=== PATIENT | female | born 2000 | race Caucasian/White ===

== ENCOUNTER 2022-11-04 12:37 | Outpatient (CLI) | payer BC, SELFPAY ==
--- NOTE | 2022-11-04 13:00 | CRLHL7_ITS ---
For Patients: As a result of the Cures Act, medical imaging exams and procedure reports are released immediately into your electronic medical record. You may view this report before your referring provider. If you have questions, please contact your health care provider. INDICATION: Early bleeding. Dating and viability check. TECHNIQUE: Ultrasound OB pelvis transabdominal and transvaginal. Real-time espinoza-scale imaging of the pelvis was performed. COMPARISON: None. FINDINGS: Tiny 5 x 4 x 2 mm endometrial sac is present. Embryo present: No. Embryo cardiac activity: NA. [place] rump Length: NA. Sonographic gestational age: NA. Sonographic estimated due date: NA. Yolk sac: Not visualized. Perigestational hemorrhage: None. Ovaries and adnexae: Unremarkable. No suspicious lesions or fluid collections. IMPRESSION: A tiny endometrial sac likely represents an early gestational sac corresponding to a less than 6 weeks gestational age. It is too early to determine viability. No sign of hemorrhage or other abnormality. Dictated by Deven Love MD @ 11/04/2022 2:45:22 PM (Electronically Signed)
== END 2022-11-04 12:38 | disposition home or self-care (01) ==
LOC: US 12:40
PROVIDERS: Visit Provider Physician Assistant
DX: O20.9 Hemorrhage in early pregnancy, unspecified (principal); Z3A.01 Less than 8 weeks gestation of pregnancy
CPT/HCPCS: 76801; 76817; 84702; 86850; 86900; 86901

== ENCOUNTER 2023-07-26 16:51 | Outpatient (CLI) | payer BC, SELFPAY ==
--- NOTE | 2023-07-26 17:00 | CRLHL7_ITS ---
For Patients: As a result of the Cures Act, medical imaging exams and procedure reports are released immediately into your electronic medical record. You may view this report before your referring provider. If you have questions, please contact your health care provider. INDICATION: First trimester scan, establish dates. COMPARISON: None. TECHNIQUE: Real-time espinoza-scale imaging of the pelvis was performed. FINDINGS: Sonographic imaging demonstrates a single living intrauterine gestation. The embryo demonstrates a regular cardiac rate measuring 176 beats per minute. The embryo`s crown-rump length measurement of 2.4 cm corresponds to a gestational age of 9 weeks 1 day with a sonographic due date of 02/27/2024. There is a normal-appearing yolk sac. There are no gross abnormalities noted within the embryo at this early state of development. The gestational sac has a normal appearance. There is no evidence of a perigestational hemorrhage. The amount of fluid within the sac appears appropriate for gestational age. The cervix is closed. The myometrium appears normal. Normal right ovary. Left ovary not visualized. There are no suspicious fluid collections noted in the cul-de-sac. IMPRESSION: Single living intrauterine with sonographic gestational age 9 weeks 1 day and sonographic due date 02/27/2024. Dictated by Lokesh Washington MD @ 07/27/2023 11:44:38 AM (Electronically Signed)
== END 2023-07-26 16:52 | disposition home or self-care (01) ==
LOC: US 16:52
PROVIDERS: Visit Provider Physician Assistant
DX: Z34.91 Encounter for supervision of normal pregnancy, unspecified, first trimester (principal); Z3A.09 9 weeks gestation of pregnancy
CPT/HCPCS: 76817; 82565; 82570; 84156; 84450; 84460; 84520; 86703; 86706; 86803; 86850; 86900; 86901; 87086; 87340; 87491; 87591

== ENCOUNTER 2023-07-26 18:31 | Outpatient (CLI) | payer BC, SELFPAY ==
[2023-07-26 23:38] LABS: Chlamydia DNA Amplified* NOT DETECTED (No Detected); GC DNA Amplified* NOT DETECTED (No Detected)
[2023-07-31 17:29] LABS: Total Protein Urine 8 mg/dL
[2023-07-31 17:30] LABS: Creatinine Urine 108.3 mg/dL
[2023-08-02 07:51] LABS: Collection Time Urine 24 Hours; Total Volume 24 Hour Urine 1400 ml; Urine Creatinine mg/24 Hour 0 mg/Day
== END 2023-07-26 18:32 | disposition home or self-care (01) ==
PROVIDERS: Visit Provider Physician Assistant
DX: Z34.91 Encounter for supervision of normal pregnancy, unspecified, first trimester (principal)
CPT/HCPCS: 82565; 82570; 84156; 84450; 84460; 84520; 86592; 86703; 86704; 86706; 86762; 86787; 86803; 86850; 86900; 86901; 87086; 87340; 87491; 87591

== ENCOUNTER 2023-08-22 15:33 | Outpatient (CLI) | payer BC, SELFPAY | END 2023-08-22 15:34 | disposition home or self-care (01) | PROVIDERS: Visit Provider Obstetrics & Gynecology | DX: R78.89 Finding of other specified substances, not normally found in blood (principal) | CPT/HCPCS: 84450; 84460 ==

== ENCOUNTER 2023-11-28 12:52 | Outpatient (CLI) | payer BC, SELFPAY ==
--- NOTE | 2023-11-28 13:00 | US_ITS ---
Patient: NELLIE GIANG Facility:?[facility] Patient ID:?[id number] Site Patient ID:?[id number]. Site :?[id number] Study:?US-OB Pelvis OB F/U GROWTH-11/28/2023 1:24:03 PM Ordering Physician:?SHRUTI LEI M.D. Final Report: INDICATION: Third trimester scan, evaluate growth. Hypertension. COMPARISON: 07/26/2023 TECHNIQUE: Real time espinoza scale imaging of the fetus was performed. FINDINGS: Sonographic imaging demonstrates a single living intrauterine gestation. Fetus demonstrates a regular cardiac rate of 141 beats per minute. Fetus has a vertex position. The placenta lies posteriorly. Amniotic fluid volume appears normal and there is a single deepest vertical pocket: 4.4 cm. The estimated weight is 1191gm which lies at the 80th %. BPD 75th percentile. HC is 60th percentile. AC is 75th percentile. FL 66th percentile. The HC/AC ratio measures 1.09 range (1.01-1.21). IMPRESSION: Sonographic gestational age is 28 weeks 2 days and a sonographic due date of 02/18/2024. Sonographic age is 8 days ahead of the clinical age. Estimated weight 80th percentile. Abdominal circumference 75th percentile. Dictated by Lokesh Washington MD @ 11/28/2023 3:55:55 PM Signed by:?Lokesh Washington MD @11/28/2023 3:55:55 PM (Electronic Signature)
== END 2023-11-28 12:53 | disposition home or self-care (01) ==
PROVIDERS: Visit Provider Obstetrics & Gynecology
DX: O10.913 Unspecified pre-existing hypertension complicating pregnancy, third trimester (principal); Z3A.28 28 weeks gestation of pregnancy
CPT/HCPCS: 76816; 86592

== ENCOUNTER 2024-01-02 11:52 | Outpatient (CLI) | payer BC, SELFPAY ==
--- NOTE | 2024-01-02 12:15 | US_ITS ---
Patient: NELLIE GIANG Facility:?[facility] Patient ID:?[id number] Site Patient ID:?[id number]. Site :?2000 Study:?US-OB Pelvis growth/BPP-01/02/2024 12:31:23 PM Ordering Physician:?SHRUTI LEI Final Report: INDICATION: Third trimester scan, evaluate growth. Hypertension. COMPARISON: 11/28/2023 TECHNIQUE: Real time espinoza scale imaging of the fetus was performed as well as color Doppler and spectral Doppler analysis of the umbilical artery. FINDINGS: Sonographic imaging demonstrates a single living intrauterine gestation. Fetus demonstrates a regular cardiac rate of 147 beats per minute. Fetus has a vertex position. The placenta lies posterior. Amniotic fluid volume appears normal and there is a single deepest vertical pocket: 4.2 cm. The estimated weight is 2006gm which lies at the 54th %. On the prior OB ultrasound exam dated 11/28/2023 the estimated weight was at the 80th%. BPD 21st percentile. Abdominal circumference 72nd percentile. HC 5th percentile. FL 56th percentile. The HC/AC ratio measures 0.99 range (0.96-1.14). Normal gross body movements, tone and respiratory activity. IMPRESSION: Sonographic gestational age 32 weeks 1 day and sonographic due date of 02/26/2024. Good correlation with dates. Normal interval growth. Estimated weight is 54th percentile. Abdominal circumference 72nd percentile. Biophysical profile 03/22. Dictated by Lokesh Washington MD @ 01/02/2024 12:39:50 PM Signed by:?Lokesh Washington MD @01/02/2024 12:39:50 PM (Electronic Signature)
== END 2024-01-02 11:53 | disposition home or self-care (01) ==
LOC: US 11:53
PROVIDERS: Visit Provider Obstetrics & Gynecology
DX: O10.913 Unspecified pre-existing hypertension complicating pregnancy, third trimester (principal); Z3A.32 32 weeks gestation of pregnancy
CPT/HCPCS: 76816; 76819

== ENCOUNTER 2024-01-10 12:43 | Outpatient (CLI) | payer BC, SELFPAY ==
--- NOTE | 2024-01-10 13:00 | CRLHL7_ITS ---
For Patients: As a result of the Century Cures Act, medical imaging exams and procedure reports are released immediately into your electronic medical record. You may view this report before your referring provider. If you have questions, please contact your health care provider. INDICATION: Unspecified pre-existing hypertension. COMPARISON: OB ultrasound 01/02/2024. TECHNIQUE: Ultrasound OB pelvis biophysical profile. Real time espinoza scale imaging of the fetus was performed without non-stress testing. FINDINGS: Sonographic imaging demonstrates a single living intrauterine gestation. The fetus demonstrates a regular cardiac rate of 167 beats per minute. The fetus has a cephalic orientation. Single deepest pocket measures 4.0 cm (2/2). The fetus was active (2/2). There was normal flexion and extension of the trunk and extremities (2/2). The fetus demonstrated normal breathing movements (2/2). IMPRESSION: Normal biophysical profile score 8 out of 8. Dictated by Lulu Ferris MD @ 01/11/2024 2:56:33 AM (Electronically Signed)
== END 2024-01-10 12:44 | disposition home or self-care (01) ==
PROVIDERS: Visit Provider Obstetrics & Gynecology
DX: O10.919 Unspecified pre-existing hypertension complicating pregnancy, unspecified trimester (principal)
CPT/HCPCS: 76819

== ENCOUNTER 2024-01-15 17:45 | Emergency (ER) | payer BC, SELFPAY ==
[2024-01-15 17:57] VITALS: BP 125/77; PULSE 123; RESP 20; TEMP 37.8; O2SAT 97; BMI 50.8
--- NOTE | 2024-01-15 18:25 | ED_ITS ---
HPI - General Adult General Chief complaint: Extremity Pain/Injury, Lower Stated complaint: R leg pain, 34 weeks Time Seen by Provider: 01/15/24 17:47 History of Present Illness HPI narrative: This 24-year-old female comes in because of some erythema, warmth, and pain in an area on the anterior aspect of her right lower extremity about a [address] from the ankle to the knee. She does not report any fever. She is 34 weeks . She does not have any report of injury event. Related Data Home Medications ?Medication ?Instructions ?Recorded ?Confirmed aspirin 81 mg capsule 81 mg PO QDAY 09/19/23 01/10/24 vits no.126-ferrous fum tab PO QDAY 10/03/23 01/10/24 28 mg iron-folic acid 800 mcg tablet (Classic ) Previous Rx's ?Medication ?Instructions ?Recorded ferrous sulfate 325 mg (65 mg 650 mg (2 x 325 mg (65 mg iron)) 01/02/24 iron) tablet PO Q OTHER DAY #30 tabs labetalol 200 mg tablet 200 mg PO QDAY #60 tabs 01/02/24 Allergies Allergy/AdvReac Type Severity Reaction Status Date / Time acetaminophen [From Vicodin] AdvReac Intermediate Headache Verified 01/10/24 13:17 hydrocodone [From Vicodin] AdvReac Intermediate Headache Verified 01/10/24 13:17 Review of Systems Status of ROS: Reports: 10 or more systems reviewed and unremarkable except as noted in History and below Narrative: Constitutional: No fevers, no weight gain or loss. Eyes: No discharge. No vision changes. HENT: No congestion, no sore throat, no ear pain. Cardiovascular: No chest pain, no palpitations. Respiratory: No shortness of breath, no wheezes, no cough. Gastrointestinal: No abdominal pain, no vomiting, no diarrhea. Genitourinary: No dysuria, no hematuria. Musculoskeletal: Normal range of motion. Skin: No rashes, no pruritis. Neurological: No dizziness, weakness, sensory change, speech change. Endo/Heme/Allergies: No bruising or bleeding. No polydipsia. Pysch: no suicidality, no anxiety, no insomnia. All other systems reviewed and are negative. [facility] Medical History (Updated 01/15/24 @ 18:33 by Mark Williamson MD) Miscarriage ?O03.9 - Complete or unspecified spontaneous without complication (ICD-10) Surgical History (Updated 11/28/23 @ 15:26 by Violetta Gallagher MD) History of tonsillectomy and adenoidectomy ?Z90.89 - Acquired absence of other organs (ICD-10) History of appendectomy ?Z90.49 - Acquired absence of other specified parts of digestive tract (ICD- 10) History of ?Z98.891 - History of uterine scar from previous surgery (ICD-10) Social History (Updated 07/28/23 @ 09:30 by Frida Mora PA-C) Narrative: SOCIAL HISTORY: 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 Marital status: Significant. Episcopal/cultural needs: no. Chemical or radiation exposure: no. Pre- tobacco use: no. Pre- alcohol use: no. Current tobacco use: no. Current alcohol use: no. Recreational drug use: History of marijuana use, stopped with positive UPT. Dietary restrictions: no. Blood transfusion acceptable in an ilana rgency: yes. PSYCHOSOCIAL HISTORY: History of depression or currently depressed: yes. 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 Problems that will make it hard to make it to appointments: no. What is your current living situation?: I presently have a place to live Problems where you live: no known problems In the past 12 months, utilities in danger of being shut off: no In past 12 months, lack of transportation kept you from medical appts, meetings, work, or getting things needed for daily living: no In the past 12 mos, have been you worried that your food would run out before you had money to buy more?: never true In the past 12 mos, the food you bought just didn't last and you didn't have money to buy more?: never true Smoking Status: Never smoker How often does anyone, including family, friends and others, physically hurt you : never How often does anyone, including family, friends and others, insult or talk down to you: never How often does anyone, including family, friends and others, threaten you with h arm: never How often does anyone, including family, friends and others, scream or curse at you: sometimes Little interest or pleasure in doing things: not at all Feeling down, depressed, or hopeless: several days Exam Narrative: Exam Narrative: Constitutional: Well-developed, well-nourished, no acute distress. HEENT: Normocephalic, atraumatic. Neck: Normal range of motion. Nontender. Supple. Heart: Intact distal pulses. Lungs: No chest discomfort. No wheezes, rhonchi, or rales. Abdomen: Nontender. Gravid Back: Normal range of motion. Extremities: Normal range of motion. Erythema with warmth and mild swelling on the anterior aspect of her right lower extremity occupying an area about 6 x 10 cm. Skin: Intact. No rash. Warm. No erythema or pallor. Neurologic: No altered sensation. No weakness. Alert and oriented. Psychiatric: No suicidality. No anxiety or depression. No insomnia. Nursing notes and vitals signs are reviewed. Const: Vital Signs, click to edit/add: Vital Signs - 24 hr 01/15/24 17:57 Temperature 100.1 F H Pulse Rate [Pulse Oximeter] 123 H Respiratory Rate 20 Blood Pressure [Ri ght Upper Arm] 125/77 Pulse Oximetry 97 Course Vital Signs Vital signs: Initial Vital Signs Temperature 100.1 F H 01/15/24 17:57 Temperature Source Temporal Artery Scan 01/15/24 17:57 Pulse Rate 123 H 01/15/24 17:57 Respiratory Rate 20 01/15/24 17:57 Blood Pressure 125/77 01/15/24 17:57 Blood Pressure Mean 93 01/15/24 17:57 Pulse Oximetry 97 01/15/24 17:57 Vital Signs Temperature 100.1 F H 01/15/24 17:57 Pulse Rate 123 H 01/15/24 17:57 Respiratory Rate 20 01/15/24 17:57 Blood Pressure 125/77 01/15/24 17:57 Pulse Oximetry 97 01/15/24 17:57 Temperature 100.1 F H 01/15/24 17:57 Pulse Rate 123 H 01/15/24 17:57 Respiratory Rate 20 01/15/24 17:57 Blood Pressure 125/77 01/15/24 17:57 Pulse Oximetry 97 01/15/24 17:57 Medical Decision Making MDM Narrative Medical decision making narrative: This patient comes in with symptoms on her right lower extremity typical of a cellulitis. She is 34 weeks and arrives with normal vital signs. She does not have any pain in the calf or up into her thigh. She does not have any shortness of breath. She does have a temperature of 100.1? but does not feel feverish. Her pulse was increased on arrival but at recheck her pulse was a bit lower than 100 beats per minute. Discharge Plan Discharge Clinical Impression: Cellulitis Patient Disposition: Home, Self-Care Condition: Stable Additional Instructions: Take medication as prescribed. Continue current plans otherwise. Follow up with MD return if worsening. Prescriptions: No Action aspirin 81 mg capsule 81 mg PO QDAY Classic 28 mg iron- 800 mcg tablet PO QDAY labetalol 200 mg tablet 200 mg PO QDAY Qty: 60 0RF ferrous sulfate 325 mg (65 mg iron) tablet 650 mg PO Q OTHER DAY Qty: 30 1RF Follow Up/Referrals: Provider,Not a Local [Primary Care Provider] - Stand Alone Forms: [employer] Info Instructions
== END 2024-01-15 19:08 | disposition home or self-care (01) ==
PROVIDERS: Emergency Provider Emergency Medicine Emergency Medical Services
DX: L03.115 Cellulitis of right lower limb (principal)
CPT/HCPCS: 99283; 99284

== ENCOUNTER 2024-01-16 12:55 | Outpatient (CLI) | payer BC, SELFPAY ==
--- NOTE | 2024-01-16 13:00 | CRLHL7_ITS ---
For Patients: As a result of the Century Cures Act, medical imaging exams and procedure reports are released immediately into your electronic medical record. You may view this report before your referring provider. If you have questions, please contact your health care provider. INDICATION: Pre-existing hypertension TECHNIQUE: Limited transabdominal two-dimensional espinoza-scale ultrasound examination. COMPARISON: 01/10/2024 FINDINGS: There is a living fetus in cephalic lie with gestational age of 34 weeks 1 day and EDC of 02/26/2024. The biophysical profile score is 8/8 with component scores of 2 for breathing movements, 2 for gross body movements, 2 for tone and 2 for amniotic fluid/SDP. The heart rate is measured at 139 beats per minute and the rhythm appears regular. The amniotic fluid volume is within normal limits with single deepest pocket of 2.3 cm. IMPRESSION: 1. Living fetus in cephalic lie with gestational age of 34 weeks 1 day and EDC of 02/26/2024. 2. Biophysical profile score is 8/8. Dictated by Denilson Darnell MD @ 01/17/2024 7:34:26 PM (Electronically Signed)
== END 2024-01-16 12:56 | disposition home or self-care (01) ==
LOC: US 12:56
PROVIDERS: Visit Provider Obstetrics & Gynecology
DX: O10.913 Unspecified pre-existing hypertension complicating pregnancy, third trimester (principal); Z3A.34 34 weeks gestation of pregnancy
CPT/HCPCS: 76819; 86787

== ENCOUNTER 2024-01-18 18:24 | Emergency (ER) | payer BC, SELFPAY ==
[2024-01-18 18:42] VITALS: BP 131/87; PULSE 99; RESP 18; TEMP 36.6; O2SAT 99; BMI 53.1
--- NOTE | 2024-01-18 19:03 | ED.GENADULT ---
HPI - General Adult General Date Seen: 01/18/24 Chief complaint: Skin/Abscess/Foreign Body Stated complaint: R leg possible cellulitis Time Seen by Provider: 01/18/24 18:58 History of Present Illness HPI narrative: This is a 24-year-old female who is currently 34 weeks presenting to the ER today with redness and pain involving her right leg. Other past medical history includes elevated blood pressure affecting , elevated BMI, depression, ADHD. She is currently 34 weeks . She developed a painful and itchy rash on her right anterior singh 3 days ago on Tuesday. Prior to that she was normal. She recalls that she did go fishing with her on Tuesday (2 days prior to onset of the symptoms) and did have to rusty to through some weeds. Her has not had any rashes, however they wonder if she might have been exposed to poison thelma. She was in the ER on 01/14 and was seen by Dr. Williamson for redness, warmth, and pain affecting an area on the anterior aspect of her right lower leg about [address] from the ankle to the knee. Records indicated was 6 x 10 cm in size. Heart rate was 123. Temperature is 100.1?. Diagnosed with cellulitis. Prescribed cephalexin 500 mg t.i.d. After that she had spreading of the rash in developed some blisters. Fever resolved. She has had some mild achiness in her body. She had a follow-up visit on 01/15 with OB, Dr. Modi. They noted new onset of blisters in the rash. Ob suspected possible poison thelma but also Treated empirically with acyclovir 1000mg TID x 7 days. HSV PCR was obtained in clinic and result is still pending as of this time. The patient recalls that her OB also speculated that the rash might actually be poison thelma. She has been taking the valacyclovir as well as the cephalexin but now notices increasing redness of the rash. Previously had been 2 discrete red lesions and now they are beginning to cold LEs. They are still some small blisters on the rash. It is more painful and more burning and more itchy today. The reddened area it has been spreading out. The 2 previously separate red rashes are now nearly confluent but there still is a small diagonal stripe unaffected skin between them. No other rashes. No fever or chills today. Related Data Home Medications ?Medication ?Instructions ?Recorded ?Confirmed aspirin 81 mg capsule 81 mg PO QDAY 09/19/23 01/16/24 vits no.126-ferrous fum tab PO QDAY 10/03/23 01/16/24 28 mg iron-folic acid 800 mcg tablet (Classic ) cephalexin 500 mg capsule 500 mg PO TID 01/16/24 01/16/24 Previous Rx's ?Medication ?Instructions ?Recorded ferrous sulfate 325 mg (65 mg 650 mg (2 x 325 mg (65 mg iron)) 01/02/24 iron) tablet PO Q OTHER DAY #30 tabs labetalol 200 mg tablet 200 mg PO QDAY #60 tabs 01/02/24 valacyclovir 1 gram tablet 1,000 mg PO Q8H 7 days #21 tabs 01/16/24 clindamycin HCl 300 mg capsule 300 mg PO TID #21 caps 01/18/24 prednisone 10 mg tablet See Rx Instructions .Route 01/18/24 .COMPLEX #58 tabs Allergies Allergy/AdvReac Type Severity Reaction Status Date / Time acetaminophen [From Vicodin] AdvReac Intermediate Headache Verified 01/16/24 13:42 hydrocodone [From Vicodin] AdvReac Intermediate Headache Verified 01/16/24 13:42 PFSH PFSH Medical History (Updated 01/18/24 @ 21:44 by Jj Che MD) Miscarriage ?O03.9 - Complete or unspecified spontaneous without complication (ICD-10) Surgical History (Updated 11/28/23 @ 15:26 by Violetta Gallagher MD) History of tonsillectomy and adenoidectomy ?Z90.89 - Acquired absence of other organs (ICD-10) History of appendectomy ?Z90.49 - Acquired absence of other specified parts of digestive tract (ICD-10) History of ?Z98.891 - History of uterine scar from previous surgery (ICD-10) Social History (Updated 07/28/23 @ 09:30 by Frida Mora PA-C) Narrative: SOCIAL HISTORY: 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 Marital status: Significant. Yazidism/cultural needs: no. Chemical or radiation exposure: no. Pre- tobacco use: no. Pre- alcohol use: no. Current tobacco use: no. Current alcohol use: no. Recreational drug use: History of marijuana use, stopped with positive UPT. Dietary restrictions: no. Blood transfusion acceptable in an emergency: yes. PSYCHOSOCIAL HISTORY: History of depression or currently depressed: yes. 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 Problems that will make it hard to make it to appointments: no. What is your current living situation?: I presently have a place to live Problems where you live: no known problems In the past 12 months, utilities in danger of being shut off: no In past 12 months, lack of transportation kept you from medical appts, meetings, work, or getting things needed for daily living: no In the past 12 mos, have been you worried that your food would run out before you had money to buy more?: never true In the past 12 mos, the food you bought just didn't last and you didn't have money to buy more?: never true Smoking Status: Never smoker How often does anyone, including family, friends and others, physically hurt you: never How often does anyone, including family, friends and others, insult or talk down to you: never How often does anyone, including family, friends and others, threaten you with harm: never How often does anyone, including family, friends and others, scream or curse at you: sometimes Little interest or pleasure in doing things: not at all Feeling down, depressed, or hopeless: several days Exam Narrative: Exam Narrative: Constitutional: Appears well-developed and well-nourished. Alert. Conversant. Non toxic. Supportively accompanied by her . HENT: Head: Atraumatic. Nose: Nose normal. Mouth/Throat: Oral mucosa is clear and moist. no trismus. Pharynx normal. Tonsils symmetric. No tonsillar enlargement, erythema, or exudate. Eyes: Conjunctivae normal. EOM normal. Pupils equal, round, and reactive to light. No scleral icterus. Neck: Normal range of motion. Neck supple. No tracheal deviation present. Cardiovascular: Normal rate, regular rhythm. No gallop. No friction rub. No murmur heard. Symmetric radial artery pulses Pulmonary/Chest: Effort normal. No stridor. No respiratory distress. No wheezes. No rales. No rhonchi . No tenderness. Abdominal: Soft. Bowel sounds normal. No distension. No mass. No tenderness. No rebound. No guarding. Musculoskeletal: RUE: Normal range of motion. No tenderness. No deformity LUE: Normal range of motion. No tenderness. No deformity RLE: Normal range of motion. No edema. No tenderness. No deformity LLE: Normal range of motion. No edema. No tenderness. No deformity Lymph: No streaks of ascending lymphangitis Neurological: Alert and oriented to person, place, and time. Normal strength. CN II-VII intact. No sensory deficit. GCS eye subscore is 4. GCS verbal subscore is 5. GCS motor subscore is 6. Normal coordination Skin: She has a fairly large erythematous rash affecting her right anterior singh. It affects the distal half of her singh. Therapy is to be 2 adjacent areas of erythema by a small diagonal stripe of unaffected normal skin. Both of the areas are reddened with central deep red and peripheral light red. There are some a small vesicles on the skin and some of them appear to be de roofed. No purulent drainage. The red skin is indurated. With careful palpation I did not detect any fluctuance. No crepitus or gas in the soft tissue. Normal plantar flexion and dorsiflexion of the ankle. Normal flexion extension of the knee. The rash is not circumferential or move around to the posterior aspect of the calf. Skin is warm and dry. No rash noted. No pallor. Normal capillary refill. Psychiatric: Normal mood. Normal affect. Const: Vital Signs, click to edit/add: Vital Signs - 24 hr 01/18/24 18:42 Temperature 97.8 F Pulse Rate [Pulse Oximeter] 99 Respiratory Rate 18 Blood Pressure [Ri ght Upper Arm] 131/87 Pulse Oximetry 99 Oxygen Delivery Me thod Room Air Course Vital Signs Vital signs: Initial Vital Signs Temperature 97.8 F 01/18/24 18:42 Temperature Source Temporal Artery Scan 01/18/24 18:42 Pulse Rate 99 01/18/24 18:42 Respiratory Rate 18 01/18/24 18:42 Blood Pressure 131/87 01/18/24 18:42 Blood Pressure Mean 101 01/18/24 18:42 Blood Pressure Position Sitting 01/18/24 18:42 Pulse Oximetry 99 01/18/24 18:42 Oxygen Delivery Method Room Air 01/18/24 18:42 Vital Signs Temperature 97.8 F 01/18/24 18:42 Pulse Rate 99 01/18/24 18:42 Respiratory Rate 18 01/18/24 18:42 Blood Pressure 131/87 01/18/24 18:42 Pulse Oximetry 99 01/18/24 18:42 Oxygen Delivery Method Room Air 01/18/24 18:42 Temperature 97.8 F 01/18/24 18:42 Pulse Rate 99 01/18/24 18:42 Respiratory Rate 18 01/18/24 18:42 Blood Pressure 131/87 01/18/24 18:42 Pulse Oximetry 99 01/18/24 18:42 Oxygen Delivery Method Room Air 01/18/24 18:42 Medications Administered Medications: Discontinued Medications Generic Name Dose Route Start Last Admin Trade Name Tila PRN Reason Stop Dose Admin Clindamycin HCl 300 mg 01/19/24 09:00 01/18/24 22:08 Clindamycin 150 Mg Capsule PO 300 mg TID MALLORY Administration Prednisone 80 mg 01/18/24 21:31 01/18/24 21:38 Prednisone 20 Mg Tablet PO 01/18/24 21:32 80 mg ONCE ONE Administration Medical Decision Making [facility] Narrative Medical decision making narrative: This patient presents for evaluation of a spreading burning, painful, itchy rash on her right anterior distal singh. Rash was 1st noted 3 days ago and has been spreading since then also developing a few vesicles. Differential is broad. Primary concerns would include poison thelma, contact dermatitis, cellulitis, shingles, abscess, necrotizing fasciitis, drug eruption, DVT, among others. Would favor probable poison thelma above others. Differential would also include contact dermatitis such as poison thelma or poison oak exposure. She was walking through the weeds while fishing with her 2 days prior to onset of the rash. Given the fascicular nature of the rash as well as the burning and itching along with pain I am suspicious this probably is a poison thelma exposure. Also poison thelma might explain the unusual pattern of the rash where there seems to be a unaffected diagonal streak down the middle of the redness. Will start her on a course of prednisone with a tapering reduction and does to treat for possible poison thelma, as well. Rash could potentially be a cellulitis. She is already on cephalexin since Tuesday. With spreading redness since then, given the possibility that this is cellulitis, I would consider this a failure of that antibiotic. Will switch to clindamycin which would give additional coverage for anaerobes as well as some coverage for community-acquired MRSA. (Consider alternative such as addition of Bactrim or doxycycline to cover MRSA, however with 3rd trimester these antibiotics are relatively contraindicated). Although the redness is spreading she is not febrile. There is no ascending lymphangitis. She is nontoxic. Laboratory workup including white count is reassuring. At this point I do not think she needs to be admitted for IV antibiotics. However rash continues to spread, that may be required. There do not appear at this time to be any complication of cellulitis including abscess, necrotizing fascitis, lymphangitis, lymphadenitis, osteomyelitis, sepsis, or shock. She is currently but is not otherwise immunosuppressed. Differential would also include shingles, but rash is non dermatomal. She is already on valacyclovir. HSV swab is pending from OB Clinic. Overall have lower suspicion for shingles but I would recommend that she continue the valacyclovir until it is definitively ruled out or rash is better. Although the rash and redness were not circumferential we did consider possible DVT. Ultrasound is obtained and is negative for DVT. The patient is instructed to follow-up with primary care physician to ensure no progression and rapid resolution and given precautions to return if high fever, spread greater than 2cm outside of the marked area, worsening pain, vomiting or any other worsening. Questions answered and return precautions reviewed. Lab Data Labs: Lab Results 01/18/24 Range/Units 19:40 WBC 8.40 (4.50-11.00) K/uL RBC 4.14 (4.00-5.20) m/uL Hgb 11.4 L (12.0-16.0) gm/dL Hct 34.5 (33.0-51.0) % MCV 83 (80-100) fL MCH 28 (26-34) pg MCHC 33 (32-36) gm/dL RDW Coeff of Manohar 14.1 (11.5-15.5) % Plt Count 217 (140-440) K/uL Neut % (Auto) 62.7 (42.0-72.0) % Lymph % (Auto) 21.9 (20-44) % Rutherford % (Auto) 13.2 H (0.0-11.0) % Eos % (Auto) 1.4 (0.0-7.0) % Baso % (Auto) 0.4 (0.0-3.0) % Neut # (Auto) 5.27 (1.7-7.0) K/uL Lymph # (Auto) 1.84 (0.90-2.90) K/uL Rutherford # (Auto) 1.10 H (0.00-0.90) K/UL Eos # (Auto) 0.12 (0.00-0.50) K/uL Baso # (Auto) 0.03 (0.00-0.30) K/uL Abs Immat Gran (auto) 0.03 (0.00-0.30) K/uL Imm/Tot Granulo (auto) 0.4 % Sodium 137 (135-149) mmol/L Potassium 3.8 (3.6-5.1) mmol/L Chloride 108 (96-114) mmol/L Carbon Dioxide 23 (20-32) mmol/L Anion Gap 6 L (7-15) mEq/L BUN 9 (5-24) mg/dL Creatinine 0.5 (0.5-1.5) mg/dL Estimated Creat Clear 122.47 Estimated GFR 133 ml/min Glucose 96 (60-115) mg/dL Lactate 1.0 (0.5-1.9) mmol/L Calcium 8.8 (8.4-10.6) mg/dL Imaging Data US venous, RLE: Attestation: I have reviewed the pertinent imaging results. Radiologist's impression: IMPRESSION: No convincing radiographic evidence of deep vein thrombosis within the right lower extremity. Discharge Plan Discharge Clinical Impression: Cellulitis, Poison thelma Patient Disposition: Home, Self-Care Condition: Stable Instructions: Cellulitis (ED), Poison Thelma (ED) Additional Instructions: As we discussed, at this time it is not clear what is causing your rash. It could be poison thelma (I think this is most likely). It could be a bacterial infection called cellulitis. I think it is less likely but it is possible that this rash is from shingles (chickenpox virus). 1. To treat for poison thelma will put you on prednisone. Fill the prescription tomorrow and continue taking it. You have to take a long course with the slowly tapering dose. 2. To treat for possible cellulitis I want you to change your antibiotics. Stop taking cephalexin. Switched to clindamycin. This is a different antibiotic that would cover different bacteria that could be affecting the skin of your leg. 3. Continue on the valacyclovir for now, in case this rashes from shingles. If you have any spreading rash, fever chills, or worsening symptoms, return to the ER or see your doctor right away to be rechecked. Prescriptions: New clindamycin HCl 300 mg capsule 300 mg PO TID Qty: 21 0RF prednisone 10 mg tablet See Rx Instructions .ROUTE .COMPLEX Qty: 58 0RF Rx Instructions: 80mg by mouth daily for 4 days, then take 60 mg by mouth daily for 2 days, then take 40 mg daily by mouth daily for 2 days, then take 20 mg daily by mouth daily for 2 days, then take 10 mg by mouth daily for 2 days, then stop. No Action aspirin 81 mg capsule 81 mg PO QDAY Classic 28 mg iron- 800 mcg tablet PO QDAY labetalol 200 mg tablet 200 mg PO QDAY Qty: 60 0RF ferrous sulfate 325 mg (65 mg iron) tablet 650 mg PO Q OTHER DAY Qty: 30 1RF cephalexin 500 mg capsule 500 mg PO TID valacyclovir 1 gram tablet 1,000 mg PO Q8H 7 Days Qty: 21 0RF Follow Up/Referrals: Provider,Not a Local [Primary Care Provider] - Stand Alone Forms: [facility] Info Instructions
--- NOTE | 2024-01-18 19:31 | CRLHL7_ITS ---
For Patients: As a result of the Century Cures Act, medical imaging exams and procedure reports are released immediately into your electronic medical record. You may view this report before your referring provider. If you have questions, please contact your health care provider. INDICATION: Pain and swelling TECHNIQUE: Ultrasound venous duplex lower right extremity. Compression venous exam was performed using espinoza-scale, color Doppler, and spectral Doppler imaging. COMPARISON: None FINDINGS: Sonographic imaging demonstrates the right common femoral, deep femoral, superficial femoral, popliteal, posterior tibial and greater saphenous and the contralateral left common femoral veins to be fully compressible with normal color Doppler blood flow. IMPRESSION: No convincing radiographic evidence of deep vein thrombosis within the right lower extremity. Dictated by Guille Mayo MD @ 01/18/2024 9:26:48 PM (Electronically Signed)
[2024-01-18 19:47] LABS: Basophils Absolute Auto 0.03 K/uL (0.00-0.30); Basophils Percent Auto 0.4 % (0.0-3.0); Eosinophils Absolute Auto 0.12 K/uL (0.00-0.50); Eosinophils Percent Auto 1.4 % (0.0-7.0); Hematocrit 34.5 % (33.0-51.0); Hemoglobin* 11.4 gm/dL (12.0-16.0); Immature Granulocytes Abs Auto 0.03 K/uL (0.00-0.30); Immature Granulocytes Pct Auto 0.4 %; Lymphocytes Absolute Auto 1.84 K/uL (0.90-2.90); Lymphocytes Percent Auto 21.9 % (20-44); Mean Corpuscular HGB Conc 33 gm/dL (32-36); Mean Corpuscular Hemoglobin 28 pg (26-34); Mean Corpuscular Volume 83 fL (80-100); Monocytes Percent Auto 13.2 % (0.0-11.0); Neutrophils Absolute Auto 5.27 K/uL (1.7-7.0); Neutrophils Percent Auto 62.7 % (42.0-72.0); Platelet Count* 217 K/uL (140-440); RDW Coefficient of Variation % 14.1 % (11.5-15.5); Red Blood Count 4.14 m/uL (4.00-5.20)
[2024-01-18 19:48] LABS: Slide Review Reflex No
[2024-01-18 20:01] LABS: Chloride* 108 mmol/L (96-114)
[2024-01-18 20:02] LABS: Potassium* 3.8 mmol/L (3.6-5.1); Sodium* 137 mmol/L (135-149)
[2024-01-18 20:04] LABS: Creatinine* 0.5 mg/dL (0.5-1.5); Est. Creatinine Clearance* 122.47; Estimated Glomerular Filt Rate 133 ml/min
[2024-01-18 20:05] LABS: Anion Gap 6 mEq/L (7-15); Blood Urea Nitrogen* 9 mg/dL (5-24); Calcium* 8.8 mg/dL (8.4-10.6); Carbon Dioxide* 23 mmol/L (20-32); Glucose* 96 mg/dL (60-115)
[2024-01-18] MEDS: predniSONE 20 MG TABLET 80 MG PO (21:38)
[2024-01-18] MEDS: CLINDAMYCIN 150 MG CAPSULE 300 MG PO (22:08)
== END 2024-01-18 22:10 | disposition home or self-care (01) ==
PROVIDERS: Emergency Provider Emergency Medicine
DX: L03.115 Cellulitis of right lower limb (principal); L25.5 Unspecified contact dermatitis due to plants, except food; Z3A.34 34 weeks gestation of pregnancy
CPT/HCPCS: 36415; 80048; 83605; 85025; 93971; 99283; A9270; J7512

== ENCOUNTER 2024-01-23 12:54 | Outpatient (CLI) | payer BC, MEDICAID, SELFPAY ==
--- NOTE | 2024-01-23 13:00 | CRLHL7_ITS ---
For Patients: As a result of the Century Cures Act, medical imaging exams and procedure reports are released immediately into your electronic medical record. You may view this report before your referring provider. If you have questions, please contact your health care provider. INDICATION: Hypertension. Thirty-five week 1 day gestation Technique: Multiple grayscale and doppler images from a biophysical profile submitted FINDINGS: breathing movements: 2 Gross body movements: 2 tone: 2 Amniotic fluid volume: 2 Total: 8/8 Amniotic Fluid SDP: 3.5 cm. Heart rate is 139 beats per minute. IMPRESSION: Normal biophysical profile score 8/8. Dictated by Ben Bunch MD @ 01/24/2024 10:07:24 AM (Electronically Signed)
== END 2024-01-23 12:55 | disposition home or self-care (01) ==
LOC: US 12:55
PROVIDERS: Visit Provider Obstetrics & Gynecology
DX: O10.913 Unspecified pre-existing hypertension complicating pregnancy, third trimester (principal); Z3A.35 35 weeks gestation of pregnancy
CPT/HCPCS: 76819

== ENCOUNTER 2024-01-27 02:42 | Outpatient (CLI) | payer BC, MEDICAID, SELFPAY ==
[2024-01-27 02:45] VITALS: PULSE 84; O2SAT 98
[2024-01-27 02:50] VITALS: BP 138/82; PULSE 72; PULSE 73; RESP 16; TEMP 36.6; O2SAT 96
[2024-01-27 02:55] VITALS: PULSE 82; O2SAT 97
--- NOTE | 2024-01-27 03:37 | CRLHL7_ITS ---
For Patients: As a result of the Century Cures Act, medical imaging exams and procedure reports are released immediately into your electronic medical record. You may view this report before your referring provider. If you have questions, please contact your health care provider. INDICATION: Pain, vaginal spotting, pre-existing hypertension COMPARISON: 01/23/2024, 01/16/2024 TECHNIQUE: Amaro-scale and color Doppler of the gravid uterus and fetus from a transabdominal approach. FINDINGS: Estimated gestational age: 35 weeks 5 days Single intrauterine gestation in vertex presentation facing posteriorly. The heart rate is 139 beats per minute and regular. The placenta is right and posterior. No previa. No periplacental hemorrhage. Placenta appears mature and consistent with gestational age. WELLBEING tone: 2/2 movement: 2/2 breathin/2 Amniotic fluid volume: 2/2 The single deepest vertical pocket measures: 3.9 cm. The amniotic fluid index is 13.3 centimeters. MATERNAL No pelvic free fluid. The maternal cervix is obscured by shadowing from the head. IMPRESSION: Single intrauterine gestation without complication seen. Biophysical profile score 8/8. Dictated by Adelaida Hodgson MD @ 01/27/2024 5:11:53 AM (Electronically Signed)
--- NOTE | 2024-01-27 03:40 | P.OBLDTN_ITS ---
OB - Triage/Final Diagnosis Visit Information Time Seen by Provider: 03:00 Date Seen: 01/27/24 Narrative: Kaitlynn Donaldson is a 24yo seen at 35w5d GA in triage for vaginal bleeding. is complicated by chronic HTN, prior and obesity. Patient notes she got up to void overnight, where she had bleeding noted with wiping and into the toilet bowl. Color is described as red like a period. She is unable to specify volume due to blood into the toilet, but after wiping once she has had no further bleeding. No inciting events such as trauma, car accident or recent intercourse. She notes a sensation of abdominal tightness across the low abdomen that is constant. Denies whole abdominal pain consistent with contractions or leaking of fluids. She notes some decreased movement from baseline. She denies any abnormal vaginal discharge, vulvovaginal itching or burning. On arrival, she noted ongoing bleeding into her undergarments where RN inspected and notes a quarter sized saturation that was predominantly thin fluid rather than harvey bleeding. Evaluation Vital signs: Vital Signs - 24 hr 01/27/24 02:45 01/27/24 02:50 01/27/24 02:55 Pulse Rate 72 Blood Pressure 138/82 Pulse Oximetry 98 96 97 Comments: General: Alert and oriented, in no acute distress Psych: Appropriate mood and affect Abdomen: Gravid. Soft, otherwise nondistended. Mildly tender to palpation in the lower quadrants, no rebound or guarding. No palpable uterine contractions. Speculum: Perineum is dry. External genital exam within normal limits. Amnisure swab collected and held. Speculum inserted, then revised in size due to collapsing vaginal side magallon. Cervix was visualized and noted to be closed and without lesion. No blood is noted in the vaginal vault, but there is thin blood- tinged discharge proximally. Pooling negative. No bleeding from the cervical os noted. Specimen obtained and sent for wet prep and ferning. SVE confirms cervix is closed and long. Decision was made to send amnisure given no harvey ongoing bleeding. We did review risk of false positive with vaginal bleeding however. FHR: Reactive NST and entirely reassuring across extended monitoring. Baseline 130bpm with moderate variability and accelerations present. No decelerations noted. Ferning negative. Amnisure negative. Wet prep negative. Hgb: 11.6 (from 11.4 on 6/5) Plt: 284 INR: 0.96 aPTT: 24 Fibrinogen: 519 US tech report (formal radiology read pending): No placental anomalies or retroplacental blood collection visualized. 8/8 BPP, MVP 3.9cm. Final Diagnosis (1) Vaginal bleeding during : Status: Acute Problem details: Kaitlynn is a 24yo at 35w5d GA seen in triage for bleeding in . No known inciting events, just noted red blood with wiping and into toilet when using the bathroom overnight. She had some decreased movement prior to admission, resolved while here. No ongoing bleeding during monitoring period. Extended monitoring was within normal limits, reactive NST throughout. No contractions noted on toco. Cervix is closed. Amnisure, ferning, wet prep negative. Labs negative for evidence of abruption, US with 8/8 BPP, MVP 3.9cm and no acute placental anomalies seen. She had no ongoing bleeding during several hours of monitoring and entirely reassuring status. Discharged to home with strict return precautions. Recommend she return to care with any acute abdominal pain, contractions, leaking of fluids, decreased movement or return of vaginal bleeding. She expressed understanding and is agreeable to plan. Next office visit 01/29.
[2024-01-27 03:45] LABS: Amnisure Rom* Negative; Clue Cells No Clue Cells Seen (None Seen); Trichomonas No Trichomonas Seen (None Seen); Yeast No Yeast Seen (None Seen)
[2024-01-27 04:04] LABS: Hematocrit 34.7 % (33.0-51.0); Hemoglobin* 11.6 gm/dL (12.0-16.0); Mean Corpuscular HGB Conc 33 gm/dL (32-36); Mean Corpuscular Hemoglobin 28 pg (26-34); Mean Corpuscular Volume 83 fL (80-100); Platelet Count* 284 K/uL (140-440); Red Blood Count 4.18 m/uL (4.00-5.20); White Blood Count* 10.27 K/uL (4.50-11.00)
[2024-01-27 04:08] LABS: Slide Review Reflex No
[2024-01-27 04:19] LABS: INR 0.96 (0.91-1.10); Prothrombin Time 13.3 Seconds
[2024-01-27 04:20] LABS: Fibrinogen* 519 mg/dL (200-450); Partial Thromboplastin Time* 24 Seconds (23-33)
--- NOTE | 2024-03-02 11:42 | PC.OBNST ---
NST Note NST Note Start: 01/27/24 02:56 Freq: ONCE Status: Discharge Protocol: Document 01/27/24 05:20 CUDDY (Rec: 03/02/24 11:41 CUYOANA [id number]) NST Note 3 Para (# of births) 2 EDC 02/26/24 Gestational Age In Weeks & Days 40 Weeks & 5 Days Patient Presented with Complaint(s) of Vaginal bleeding Reactive Yes Appropriate for Gestational Age Yes ARLETTE Crespo RNC Date 01/27/24 Reactive Yes Appropriate for Gestational Age Yes ARLETTE Hayward RN Date 01/27/24 OB NST charge Yes Complete NST Note via Write Note Yes The provider's electronic signature indicates the NST is reactive/appropriate for gestational age. *Note to provider: If an addendum is required, open the patient's chart and click on the note under the Nurse/Allied Health tab.
== END 2024-01-27 05:24 | disposition home or self-care (01) ==
LOC: OB OUT 02:42 → OB 02:42
PROVIDERS: Visit Provider Obstetrics & Gynecology
DX: O46.93 Antepartum hemorrhage, unspecified, third trimester (principal); O10.913 Unspecified pre-existing hypertension complicating pregnancy, third trimester; Z3A.35 35 weeks gestation of pregnancy
CPT/HCPCS: 36415; 59025; 76819; 84112; 85027; 85384; 85610; 85730; 86850; 86900; 86901; 87210; G0463

== ENCOUNTER 2024-01-30 12:58 | Outpatient (CLI) | payer BC, MEDICAID, SELFPAY ==
--- NOTE | 2024-01-30 13:00 | CRLHL7_ITS ---
For Patients: As a result of the Century Cures Act, medical imaging exams and procedure reports are released immediately into your electronic medical record. You may view this report before your referring provider. If you have questions, please contact your health care provider. INDICATION: Hypertension TECHNIQUE: Real time espinoza scale imaging of the fetus was performed. COMPARISON: 01/27/2024 FINDINGS: Sonographic imaging demonstrates a single living intrauterine gestation. Fetus demonstrates a regular cardiac rate of 133 beats per minute. Fetus has a text position. The placenta lies posteriorly. Amniotic fluid volume appears normal and there is a single deepest pocket of 3.3 cm. The estimated weight is 2861gm which lies at the 52nd percentile. On the prior OB ultrasound dated 01/02/2024 the estimated weight was at the 53rd percentile. BPD 72nd percentile. HC 17th percentile. AC 70th percentile. FL is 25th percentile. The fetus was active and demonstrated normal breathing movements. There was normal flexion and extension of the trunk and extremities. IMPRESSION: Normal biophysical profile score 8/8. Sonographic gestational age 36 weeks 1 day and sonographic due date 02/26/2024. Good correlation with dates. Normal interval growth. Estimated weight 52nd percentile. Abdominal circumference 70th percentile. Dictated by Lokesh Washington MD @ 01/30/2024 1:50:41 PM (Electronically Signed)
== END 2024-01-30 12:59 | disposition home or self-care (01) ==
LOC: US 12:59
PROVIDERS: Visit Provider Obstetrics & Gynecology
DX: O10.913 Unspecified pre-existing hypertension complicating pregnancy, third trimester (principal); Z3A.36 36 weeks gestation of pregnancy
CPT/HCPCS: 76816; 76819; 82565; 82570; 84156; 84450; 84460; 84520

== ENCOUNTER 2024-01-31 08:49 | Inpatient (IN) | payer BC, SELFPAY ==
[2024-01-31] VITALS (72 sets, daily range): BP systolic 110–150; BP diastolic 56–85; PULSE 74–777; RESP 16–20; TEMP 36.4–37.2; O2SAT 92–100; BMI 54.1
--- NOTE | 2024-01-31 08:16 | P.LDBA_ITS ---
Subjective History of Present Illness Time Seen by Provider: 08:16 Date Seen: 01/31/24 Narrative: Patient is being admitted to Labor and Delivery for repeat delivery due to recent diagnosis of CHTN with superimposed severe features. She is a 24 year old at 36 2/7 weeks gestation. Her full history and physical was dictated by Dr. Gordon Mora and Dr. Jiang on 01/30/24. Please see this for details. Patient states that she has been dealing with headache since yesterday that has not gone away with Tylenol and rest. She also called unit with BP readings at home systolics in the 160s. Patient is currently on labetalol 200mg BID and even after taking her morning dose her blood pressures remained systolics in the 150s. Patient had labs collected yesterday that show AST more than double the upper range of normal. Because of all of these findings diagnosis of superimposed severe features given and recommendation has been given for delivery, magnesium sulfate infusion for seizure prophylaxis. Specific Issues/Plans [id number] # Probable chronic HTH with history of gestational hypertension. Pre-E? * Patient reports induction at 34 weeks for severe range blood pressures, records have been requested. * Baseline pre E labs: All normal with the exception of mild elevation of AST, 43. Repeat AST on 08/22/23: 20 * 24 hour urine for protein: 112 mg * Suspect chronic hypertension. Begin daily home blood pressure monitoring (08/22/23). * Aspirin 81 mg starting at 12 weeks * Start labetalol 100 mg BID (09/19/23) * Increase to 200 mg BID on 12/19/23 * Pre-E labs 01/30/24: [] , ordered weekly pre-E labs # History of , arrest of descent and dilation * Undecided versus repeat * Declined TOLAC after learning her chance of success is 19.1% * Repeat scheduled for 02/12/23 = [address] 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 Declined * Referral to anesthesia: visit completed 12/20/23 * Level 2 ultrasound and consult with MFM: 10/04/2023, no anomalies, EFW 81%, AC 62% * Early 1 hour GTT at 16-20 weeks: 110 * Weekly BPP starting at 32 weeks: scheduled * Growth ultrasound q.4 weeks starting at 28 weeks: see below # Right lower extremity erythematous painful rash * Seen in ER on 01/15/2024, diagnosed with cellulitis, treated with cephalexin 500 mg t.i.d.. * Rash increased on 01/16/2024, swab for HZV PCR obtained. Patient empirically treated with valacyclovir 1000 mg q.8 hours x 7 days for possible shingles. # ADD: She discontinued her Adderall with positive test and feels she is doing well at this time without it. # Depression: Discontinued her venlafaxine with positive test. At 1st OB she stated she was doing well and did not want to restart. # Mild intermittent asthma. * Albuterol use: once per month # Anemia with Hb 10.5 at 27 weeks * Begin ferrous sulfate 650 mg QOD * Repeat Hb at 34 weeks: 11.4 Ultrasounds: 11/28/23 = 27 08/21: EFW 80%, AC 75%, all growth parameters within normal ranges, SDP 4.4 cm, cephalic. 01/02/24 = 32 08/21: BPP 8/8, cephalic, normal fluid, EFW 54% with all growth parameters within normal ranges, AC 72%. 01/30/24= 36 08/21: BPP 8/8, vertex, normal fluid, EFW 51%, AC 70% COVID: FLU: Tdap- 12/19/23 OB - Problem Based A/P Additional Plan (1) Previous delivery affecting : Status: Acute (2) BMI 50.0-59.9, adult: Status: Acute (3) Chronic hypertension affecting : Problem details: With evidence of severe features at 36 weeks requiring delivery. Status: Acute Plan 1. CHTN with superimposed severe features: start Magnesium sulfate bolus followed by maintenance infusion. Will treat with IV antihypertensive meds if needed as per protocol. Labs every 6 hours. Preeclampsia assessments every 2 hours. Strict I/Os. Will continue PO labetalol 200mg BID. Will continue BP monitoring and assess need of medication titration. 2. Repeat delivery: Patient was consented for surgery yesterday in clinic. Understands recommendation to proceed with delivery at this time. 3. Will plan to utilize prophylactic Lovenox after delivery. OB Exam Physical Exam Vital signs: Pulse BP Pulse Ox 90 138/77 97 01/31/24 08:06 01/31/24 08:06 01/31/24 07:36 Narrative: NST: 135bpm/positive accelerations/negative decelerations/moderate variability/ no uterine contractions
[2024-01-31] MEDS: LACTATED RINGERS 1000 ML 1,000 ML 900 ML IV (08:30)
[2024-01-31] MEDS: MAGNESIUM IV 4 GM/100 ML PIGGYBACK IVPB (08:30)
[2024-01-31 08:40] LABS: Hematocrit 35.2 % (33.0-51.0); Hemoglobin* 11.6 gm/dL (12.0-16.0); Mean Corpuscular HGB Conc 33 gm/dL (32-36); Mean Corpuscular Hemoglobin 27 pg (26-34); Mean Corpuscular Volume 83 fL (80-100); Platelet Count* 230 K/uL (140-440); Red Blood Count 4.24 m/uL (4.00-5.20)
[2024-01-31 08:48] LABS: Slide Review Reflex No
[2024-01-31 09:00] LABS: Alanine Aminotransferase* 18 U/L (4-35); Aspartate Amino Transferase* 28 U/L (12-35); Creatinine* 0.4 mg/dL (0.5-1.5); Estimated Glomerular Filt Rate 140 ml/min; INR 0.95 (0.91-1.10); Prothrombin Time 13.3 Seconds
[2024-01-31 09:01] LABS: Blood Urea Nitrogen* 9 mg/dL (5-24); Partial Thromboplastin Time* 24 Seconds (23-33); Uric Acid* 4.7 mg/dL (2.2-8.4)
[2024-01-31 09:03] LABS: Fibrinogen* 504 mg/dL (200-450)
[2024-01-31] MEDS: MAGNESIUM Infusion 40 GM/1,000 ML IV.SOLN IVPB (09:04)
--- NOTE | 2024-01-31 09:44 | W.ANESCHARGE ---
Anesthesia Charges Start Date/Time Anesthesia Start Date: 01/31/24 Anesthesia Start Time: 12:16 Stop Date/Time Anesthesia Stop Date: 01/31/24 Anesthesia Stop Time: 14:52 Summary Emergency: MDA
[2024-01-31 10:14] LABS: Total Protein Urine 22 mg/dL
[2024-01-31 10:15] LABS: Creatinine Urine 272.6 mg/dL; Protein Creatinine Ratio Urine 0.08 (0-0.19)
[2024-01-31] MEDS: CEFAZOLIN 1 GM inj 3 GM IVP (12:27)
[2024-01-31] MEDS: LACTATED RINGERS 1000 ML 1,000 ML 50 ML IV ×2 (12:40→13:59)
[2024-01-31 13:09] LABS: Basophils Absolute Auto 0.03 K/uL (0.00-0.30); Basophils Percent Auto 0.4 % (0.0-3.0); Eosinophils Percent Auto 1.2 % (0.0-7.0); Immature Granulocytes Abs Auto 0.02 K/uL (0.00-0.30); Immature Granulocytes Pct Auto 0.2 %; Lymphocytes Absolute Auto 2.37 K/uL (0.90-2.90); Lymphocytes Percent Auto 29.1 % (20-44); Monocytes Percent Auto 10.4 % (0.0-11.0); Neutrophils Absolute Auto 4.77 K/uL (1.7-7.0); Neutrophils Percent Auto 58.7 % (42.0-72.0)
[2024-01-31] MEDS: TRANEXAMIC ACID 100 MG/ML INJ 1000 MG IV (13:20)
[2024-01-31 14:05] LABS: Basophils Absolute Auto 0.02 K/uL (0.00-0.30); Basophils Percent Auto 0.2 % (0.0-3.0); Eosinophils Absolute Auto 0.05 K/uL (0.00-0.50); Eosinophils Percent Auto 0.5 % (0.0-7.0); Hematocrit 35.7 % (33.0-51.0); Hemoglobin* 11.5 gm/dL (12.0-16.0); Immature Granulocytes Abs Auto 0.02 K/uL (0.00-0.30); Immature Granulocytes Pct Auto 0.2 %; Lymphocytes Percent Auto 15.4 % (20-44); Mean Corpuscular HGB Conc 32 gm/dL (32-36); Mean Corpuscular Hemoglobin 27 pg (26-34); Mean Corpuscular Volume 85 fL (80-100); Monocytes Percent Auto 6.3 % (0.0-11.0); Neutrophils Percent Auto 77.4 % (42.0-72.0); Platelet Count* 240 K/uL (140-440); RDW Coefficient of Variation % 13.9 % (11.5-15.5); Red Blood Count 4.21 m/uL (4.00-5.20); Slide Review Reflex No; White Blood Count* 10.21 K/uL (4.50-11.00)
[2024-01-31] MEDS: KETOROLAC 30 MG/ML inj IVP ×2 (14:23→20:56)
[2024-01-31 14:30] LABS: Fibrinogen* 456 mg/dL (200-450)
[2024-01-31 14:31] LABS: INR 1.03 (0.91-1.10); Partial Thromboplastin Time* 24 Seconds (23-33); Prothrombin Time 14.1 Seconds
--- NOTE | 2024-01-31 14:45 | PM.OBPRCCS ---
OB Delivery Proc Additional Procedures Tubal Ligation at the time of : No Other: No Procedure Date of procedure: 01/31/24 Pre-op diagnosis: CHTN with superimposed severe features, previous section desiring repeat Post-op diagnosis: same Procedure Done: Global Will [facility] bill your pro fee for this procedure?: Yes Blood Loss Measurement Type: QBL (811mL) Bakri Used: No IV fluids (mL): 2,100 Urine Output (mL): 100 Surgeon: Arturo Bravo MD Traffic Checker: Rosie Gallagher MD Anesthesia Type: Spinal Findings: FINDINGS: Live-born male infant, vertex presentation, Apgars 5 and 7 at 1 and 5 minutes respectively. weight 6 lb 12 oz. Dense adhesions of the fascia and rectus muscles. Omental adhesions to the anterior abdominal wall, right fimbria and right pelvic side wall. Thick adhesions of the bladder reflection to the low anterior uterine segment. Otherwise, bilateral fallopian tubes and ovaries grossly normal. Procedure Name: Repeat low transverse section, lysis of adhesions. Procedure Description: PROCEDURE: After obtaining informed consent, the patient was taken to the operating room where spinal anesthesia was obtained and found to be adequate. She was prepared and draped in the normal sterile fashion in the dorsal supine position with a leftward tilt. A Pfannenstiel skin incision was made with a scalpel along the line of the patient's previous Pfannenstiel scar. This incision was carried down to the underlying layer of fascia with the scalpel and Bovie. The fascia was incised in the midline and the incision extended laterally with pickups and curved Hare scissors. The superior aspect of the fascial incision were grasped with Martina clamps, elevated and the underlying rectus muscles dissected off sharply and with electrocautery, this was difficult due to dense adhesions. A small window was found and peritoneum entered bluntly, this allowed the rectus muscles to be in the midline. Omentum adhesion to the anterior abdominal wall released, thin segment opened with cautery, hemostasis secured. Bladder flap was also completed with Metzembaun scissors and blunt dissection. The Hari O retractor was then placed into the incision. The lower uterine segment was then incised in a transverse fashion with the scalpel. Upon entry into the uterus, clear amniotic fluid was noted. The uterine incision was extended cephalo caudally with blunt finger fractionation. The infant's head was delivered atraumatically, followed by the remainder of the 's body. The nose and mouth were suctioned with the bulb suction. The cord was doubly clamped and cut, after 30 seconds of delayed cord clamping and the was handed off the field for evaluation. The placenta was delivered spontaneously with umbilical cord traction and fundal massage. The uterus was cleared of all clots and debris. The uterine incision was reapproximated in a running locking fashion with a 0 Vicryl suture. A 2nd layer of the same suture was used to imbricate in horizontal fashion. Persistent bleeding noted from hysterotomy site, treated with multiple sutures of Vicryl 0 and Chromic 2-0. Hemostasis secured. Small bleeding vessels also coagulated with cautery. Shayne was also utilized over hysterotomy and adhesion resections sites to further secure hemostasis. The gutters were inspected and cleared of blood clots. Omental adhesions to the right pelvic side wall released with cautery and hemostasis secured. All instruments and retractors were removed. The anterior peritoneum was reapproximated in a running fashion with a 3-0 Vicryl suture. The subfascial tissues were carefully inspected and hemostasis assured. The fascia was reapproximated in a running fashion with a looped 0 PDS suture. At the end of fascial closure towards the right corner of incision one of the strands of the loop broke. The suture was released until a long enough segment was obtained. A second 0 PDS loop suture was utilized and started from the right corner the fascia was reapproximated until it met with the previous one and 2 long strands of knots completed. The subcutaneous tissues were copiously irrigated. Hemostasis was assured. The subcutaneous fat layer was reapproximated with interrupted sutures of 3-0 Vicryl. The skin was closed in a subcuticular fashion with 4-0 Monocryl. Silver dressing applied to be removed in 7 days. The patient tolerated the procedure well. Sponge, lap, needle, and instrument counts were reported as correct x2. The patient was taken to the recovery room, awake, and in stable condition. She did receive 3 grams of IV Ancef preoperatively. 1 g of TXA due to concerns of persistent oozing. Coagulation parameters were also collected during surgery and normal. IV Magnesium running and will continue to complete 24 hours after delivery. Complications: None Pathology: specimen obtained, sent to pathology (Placenta) Surgery Debrief Performed: Yes Condition: stable Disposition: floor
--- NOTE | 2024-01-31 14:57 | W.ANESCHARGE ---
Anesthesia Charges Start Date/Time Anesthesia Start Date: 01/31/24 Anesthesia Start Time: 12:16 Stop Date/Time Anesthesia Stop Date: 01/31/24 Anesthesia Stop Time: 14:52 Summary Emergency: MDA
--- NOTE | 2024-01-31 15:05 | W.PM.NB ---
Nerve Block Nerve Block Time Seen by Provider: 14:44 Date Seen: 01/31/24 Type of block requested by surgeon for post-operative analgesia: TAP Side: bilateral Time out performed: Yes Verification of patient name: Yes Verification of date of : Yes Site marking: site marked Name of person performing procedure: Nixon Continuous monitoring Was continuous monitoring of O2 sat, B/P, cardiac rehabilitation specialist, recorded every 15 minutes?: Yes Procedure Checklist: sterile prep, needles and gloves Ultrasound guided. Images saved: Yes Medications given in 5ml increments after negative aspiration: Marcaine %: 0.25 mL: 30 Needle gauge: 20 and Exparel mL: 10 Patient tolerated procedure well: Yes Additional comments: Needle noted between internal oblique and transversus abdominus. Local spread visualized Block Charges Block Charge (with Pro Fee): TAP Bilateral Use of Ultrasound Machine for Block: Yes- US Guidance/pain block
[2024-01-31 16:22] LABS: Hemoglobin* 11.7 gm/dL (12.0-16.0); Mean Corpuscular HGB Conc 33 gm/dL (32-36); Mean Corpuscular Hemoglobin 27 pg (26-34); Mean Corpuscular Volume 84 fL (80-100); Platelet Count* 240 K/uL (140-440); Red Blood Count 4.27 m/uL (4.00-5.20); White Blood Count* 17.94 K/uL (4.50-11.00)
[2024-01-31 16:27] LABS: Slide Review Reflex No
[2024-01-31 16:40] LABS: Alanine Aminotransferase* 18 U/L (4-35); Aspartate Amino Transferase* 31 U/L (12-35); Creatinine* 0.4 mg/dL (0.5-1.5); Est. Creatinine Clearance* 153.09; Estimated Glomerular Filt Rate 140 ml/min
[2024-01-31 16:41] LABS: Blood Urea Nitrogen* 9 mg/dL (5-24)
--- NOTE | 2024-01-31 16:48 | W.PM.VAGDE_ITS ---
<Statement entered by Cristel Bravo MD - 02/17/24 16:08> Patient had a repeat delivery and operative note was completed. This document should be deleted.
[2024-01-31 16:55] LABS: Magnesium* 4.5 mg/dL (1.5-2.6)
[2024-01-31] MEDS: MAGNESIUM IV 2 GM/50 ML PIGGYBACK IVPB (17:38)
[2024-01-31 18:11] LABS: Albumin* 3.6 g/dL (3.3-5.0); Chloride* 106 mmol/L (96-114); Potassium* 4.4 mmol/L (3.6-5.1); Sodium* 133 mmol/L (135-149)
[2024-01-31 18:14] LABS: Alanine Aminotransferase* 17 U/L (4-35); Alkaline Phosphatase* 165 U/L (40-150); Anion Gap 7 mEq/L (7-15); Aspartate Amino Transferase* 27 U/L (12-35); Bilirubin Total* 0.5 mg/dL (0.1-1.5); Blood Urea Nitrogen* 9 mg/dL (5-24); Carbon Dioxide* 20 mmol/L (20-32); Creatinine* 0.5 mg/dL (0.5-1.5); Est. Creatinine Clearance* 122.47; Estimated Glomerular Filt Rate 133 ml/min; Glucose* 101 mg/dL (60-115); Total Protein* 6.8 g/dL (6.0-8.3)
[2024-01-31 18:15] LABS: Calcium* 8.1 mg/dL (8.4-10.6)
[2024-01-31] MEDS: LACTATED RINGERS 1000 ML 1,000 ML 75 ML IV (18:44)
[2024-01-31] MEDS: LABETALOL HCL 100 MG TABLET 200 MG PO (20:57)
[2024-02-01] VITALS (16 sets, daily range): BP systolic 104–130; BP diastolic 63–83; PULSE 81–97; RESP 16–22; TEMP 36.4–36.8; O2SAT 96–100
[2024-02-01] MEDS: KETOROLAC 30 MG/ML inj IVP ×4 (02:37→21:14)
[2024-02-01] MEDS: ENOXAPARIN 40 MG/0.4 ML INJ SUBCUT ×2 (02:37→14:11)
[2024-02-01 03:16] LABS: Hematocrit 33.2 % (33.0-51.0); Hemoglobin* 11.1 gm/dL (12.0-16.0); Mean Corpuscular HGB Conc 33 gm/dL (32-36); Mean Corpuscular Hemoglobin 28 pg (26-34); Mean Corpuscular Volume 83 fL (80-100); Platelet Count* 249 K/uL (140-440); Red Blood Count 3.98 m/uL (4.00-5.20); White Blood Count* 17.51 K/uL (4.50-11.00)
[2024-02-01 03:18] LABS: Slide Review Reflex No
[2024-02-01 03:35] LABS: Aspartate Amino Transferase* 38 U/L (12-35); Creatinine* 0.6 mg/dL (0.5-1.5); Est. Creatinine Clearance* 102.06; Estimated Glomerular Filt Rate 127 ml/min
[2024-02-01 03:36] LABS: Alanine Aminotransferase* 20 U/L (4-35); Blood Urea Nitrogen* 13 mg/dL (5-24)
[2024-02-01 03:45] LABS: Magnesium* 5.2 mg/dL (1.5-2.6)
[2024-02-01] MEDS: MAGNESIUM Infusion 40 GM/1,000 ML IV.SOLN IVPB (04:06)
--- NOTE | 2024-02-01 07:53 | PM.OBPNVD1 ---
OB - PN:Subj Subjective Date Seen: 02/01/24 Interval history: Juanita is a 24-year-old G3 now P2 woman who is status post repeat delivery with lysis of adhesions on 01/31/2024 at 36 weeks, 2 days gestation in the setting of chronic hypertension with superimposed preeclampsia with severe features. Specific Issues/Plans [id number] # Probable chronic HTH with history of gestational hypertension. Pre-E? Patient reports induction at 34 weeks for severe range blood pressures, records have been requested. Baseline pre E labs: All normal with the exception of mild elevation of AST, 43. Repeat AST on 08/22/23: 20 24 hour urine for protein: 112 mg Suspect chronic hypertension. Begin daily home blood pressure monitoring (08/22/23). Aspirin 81 mg starting at 12 weeks Start labetalol 100 mg BID (09/19/23) Increase to 200 mg BID on 12/19/23 Pre-E labs 01/30/24: , ordered weekly pre-E labs # History of , arrest of descent and dilation Undecided versus repeat Declined TOLAC after learning her chance of success is 19.1% Repeat scheduled for 02/12/23 = 38 [address] 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 Declined Referral to anesthesia: visit completed 12/20/23 Level 2 ultrasound and consult with MFM: 10/04/2023, no anomalies, EFW 81%, AC 62% Early 1 hour GTT at 16-20 weeks: 110 Weekly BPP starting at 32 weeks: scheduled Growth ultrasound q.4 weeks starting at 28 weeks: see below # Right lower extremity erythematous painful rash Seen in ER on 01/15/2024, diagnosed with cellulitis, treated with cephalexin 500 mg t.i.d.. Rash increased on 01/16/2024, swab for HZV PCR obtained. Patient empirically treated with valacyclovir 1000 mg q.8 hours x 7 days for possible shingles. # ADD: She discontinued her Adderall with positive test and feels she is doing well at this time without it. # Depression: Discontinued her venlafaxine with positive test. At 1st OB she stated she was doing well and did not want to restart. # Mild intermittent asthma. Albuterol use: once per month # Anemia with Hb 10.5 at 27 weeks Begin ferrous sulfate 650 mg QOD Repeat Hb at 34 weeks: 11.4 Narrative: Kaitlynn would like to be off of magnesium. Otherwise, she has no complaints. Pain is well controlled. She is bottle feeding her . She has been able to walk to the bathroom. She is voiding without difficulty. She is tolerating regular diet and has flatus. No chest pain or shortness of breath. No headache. OB - PN: Obj Exam Physical Exam: Vital signs: Temp Pulse Resp BP Pulse Ox O2 Del Method 98.0 F 86 18 115/68 97 Room Air 02/01/24 06:26 02/01/24 06:26 02/01/24 06:26 02/01/24 06:26 02/01/24 06:02/01/24 06:26 She has been almost entirely normotensive throughout her postoperative course. She has had 1730 of urine output over the last 24 hours, and 550 mL since midnight. Narrative: General: Pleasant, no acute distress Heart: Regular rate and rhythm, no murmur or gallop Lungs: Clear to auscultation bilaterally Abdomen: Normoactive bowel sounds. Soft, nontender, fundus well below umbilicus. Silver dressing clean, dry, and intact. Lower extremities: SCDs in place. 2+ edema bilateral ankles. No visible erythema Urinary Catheter Management: Broussard: Cath placed during this visit: yes, but has since been removed by the nurse Reason for continuing: decision to DC catheter Insertion date: 01/31/24 Insertion time: 11:00 Removal date: 02/01/24 Removal time: 00:00 OB - PN: Obj Data Labs Labs: Laboratory Results - last 24 hr 01/31/24 01/31/24 01/31/24 08:19 09:50 13:49 WBC 8.10 10.21 RBC 4.24 4.21 Hgb 11.6 L 11.5 L Hct 35.2 35.7 MCV 83 85 MCH 27 27 MCHC 33 32 RDW Coeff of Manohar 14.0 13.9 Plt Count 230 240 Neut % (Auto) 58.7 77.4 H Lymph % (Auto) 29.1 15.4 L [place] % (Auto) 10.4 6.3 Eos % (Auto) 1.2 0.5 Baso % (Auto) 0.4 0.2 Neut # (Auto) 4.77 7.90 H Lymph # (Auto) 2.37 1.60 [place] # (Auto) 0.80 0.60 Eos # (Auto) 0.10 0.05 Baso # (Auto) 0.03 0.02 Abs Immat Gran (auto) 0.02 0.02 Imm/Tot Granulo (auto) 0.2 0.2 INR 0.95 APTT 24 Fibrinogen 504 H Sodium Potassium Chloride Carbon Dioxide Anion Gap BUN 9 Creatinine 0.4 L Estimated Creat Clear Estimated GFR 140 Glucose Uric Acid 4.7 Calcium Magnesium Total Bilirubin AST 28 ALT 18 Alkaline Phosphatase Total Protein Albumin Urine Creatinine 272.6 Protein/Creatinin Ratio 0.08 Urine Total Protein 22 Blood Type B Positive Antibody Screen NEGATIVE Crossmatch ([facility]) See Detail 01/31/24 01/31/24 01/31/24 13:50 16:14 16:14 WBC 17.94 H RBC 4.27 Hgb 11.7 L Hct 36.0 MCV 84 MCH 27 MCHC 33 RDW Coeff of Manohar Plt Count 240 Neut % (Auto) Lymph % (Auto) [place] % (Auto) Eos % (Auto) Baso % (Auto) Neut # (Auto) Lymph # (Auto) [place] # (Auto) Eos # (Auto) Baso # (Auto) Abs Immat Gran (auto) Imm/Tot Granulo (auto) INR 1.03 APTT 24 Fibrinogen 456 H Sodium 133 L Potassium 4.4 Chloride 106 Carbon Dioxide 20 Anion Gap 7 BUN 9 9 Creatinine 0.4 L Estimated Creat Clear Estimated GFR Glucose Uric Acid Calcium Magnesium Total Bilirubin AST ALT Alkaline Phosphatase Total Protein Albumin Urine Creatinine Protein/Creatinin Ratio Urine Total Protein Blood Type Antibody Screen Crossmatch ([facility]) 01/31/24 01/31/24 01/31/24 16:14 16:14 16:14 WBC RBC Hgb Hct MCV MCH MCHC RDW Coeff of Manohar Plt Count Neut % (Auto) Lymph % (Auto) [place] % (Auto) Eos % (Auto) Baso % (Auto) Neut # (Auto) Lymph # (Auto) [place] # (Auto) Eos # (Auto) Baso # (Auto) Abs Immat Gran (auto) Imm/Tot Granulo (auto) INR APTT Fibrinogen Sodium Potassium Chloride Carbon Dioxide Anion Gap BUN Creatinine 0.5 Estimated Creat Clear 153.09 122.47 Estimated GFR 140 133 Glucose 101 Uric Acid Calcium 8.1 L Magnesium 4.5 H* Total Bilirubin 0.5 AST 31 ALT Alkaline Phosphatase Total Protein Albumin Urine Creatinine Protein/Creatinin Ratio Urine Total Protein Blood Type Antibody Screen Crossmatch ([facility]) 01/31/24 01/31/24 02/01/24 16:14 16:14 03:10 WBC 17.51 H RBC 3.98 L Hgb 11.1 L Hct 33.2 MCV 83 MCH 28 MCHC 33 RDW Coeff of Manohar Plt Count 249 Neut % (Auto) Lymph % (Auto) [place] % (Auto) Eos % (Auto) Baso % (Auto) Neut # (Auto) Lymph # (Auto) [place] # (Auto) Eos # (Auto) Baso # (Auto) Abs Immat Gran (auto) Imm/Tot Granulo (auto) INR APTT Fibrinogen Sodium Potassium Chloride Carbon Dioxide Anion Gap BUN 13 Creatinine 0.6 Estimated Creat Clear 102.06 Estimated GFR 127 Glucose Uric Acid Calcium Magnesium 5.2 H* Total Bilirubin AST 27 38 H ALT 18 17 20 Alkaline Phosphatase 165 H Total Protein 6.8 Albumin 3.6 Urine Creatinine Protein/Creatinin Ratio Urine Total Protein Blood Type Antibody Screen Crossmatch ([facility]) OB - PN: A/P Delivery Assessment and Plan (1) BMI 50.0-59.9, adult: Status: Acute Assessment and Plan: Continue Lovenox 40 mg b.i.d. (2) Chronic hypertension affecting : Problem details: With evidence of severe features at 36 weeks requiring delivery. Status: Acute Assessment and Plan: Continue magnesium for 24 hours . Continue labetalol 200 mg b.i.d., adjust accordingly after cessation of magnesium. (3) Severe pre-eclampsia, complicating the puerperium: Status: Acute Assessment and Plan: As above. (4) Status post repeat low transverse section: Status: Acute Assessment and Plan: Appropriate postop course. Leave silver dressing on for 1 week .
[2024-02-01] MEDS: LABETALOL HCL 100 MG TABLET 200 MG PO ×2 (08:51→21:15)
[2024-02-01 10:16] LABS: Hematocrit 30.2 % (33.0-51.0); Hemoglobin* 9.9 gm/dL (12.0-16.0); Mean Corpuscular HGB Conc 33 gm/dL (32-36); Mean Corpuscular Hemoglobin 28 pg (26-34); Mean Corpuscular Volume 85 fL (80-100); Platelet Count* 219 K/uL (140-440); Red Blood Count 3.57 m/uL (4.00-5.20); White Blood Count* 13.02 K/uL (4.50-11.00)
[2024-02-01 10:18] LABS: Slide Review Reflex No
[2024-02-01 10:33] LABS: Aspartate Amino Transferase* 44 U/L (12-35); Creatinine* 0.6 mg/dL (0.5-1.5); Est. Creatinine Clearance* 102.06; Estimated Glomerular Filt Rate 127 ml/min
[2024-02-01 10:34] LABS: Alanine Aminotransferase* 19 U/L (4-35); Blood Urea Nitrogen* 15 mg/dL (5-24)
[2024-02-01 10:38] LABS: Magnesium* 5.3 mg/dL (1.5-2.6)
[2024-02-02 00:12] VITALS: BP 120/74; PULSE 76; RESP 16; TEMP 36.8; O2SAT 99
[2024-02-02] MEDS: ENOXAPARIN 40 MG/0.4 ML INJ SUBCUT ×2 (02:52→13:52)
[2024-02-02] MEDS: IBUPROFEN 600 MG TABLET PO ×2 (04:11→12:02)
[2024-02-02 04:16] VITALS: BP 122/74; RESP 16; O2SAT 98
--- NOTE | 2024-02-02 08:06 | P.DS_ITS ---
DS: Providers Provider Time Seen by Provider: 08:06 Date Seen: 02/02/24 Date of admission: 01/31/24 08:49 Primary care physician: Not a Local Provider Admitting Clinician: Cristel Bravo MD Attending Physician on discharge: Odette Pereira MD Date of Discharge: 02/02/24 DS: Diagnosis Discharge Diagnosis (1) Status post repeat low transverse section: Status: Acute (2) Severe pre-eclampsia, complicating the puerperium: Status: Acute Exam Narrative: Exam Narrative: GENERAL APPEARANCE: Pleasant, [race], well-groomed woman in no acute distress. VITAL SIGNS: as noted in nursing notes HEAD: Normocephalic, atraumatic. THYROID: no masses, nodularity, tenderness or enlargement. LUNGS: Clear to auscultation bilaterally without wheezes, rales or rhonchi. HEART: Regular rate and rhythm with normal S1 and S2. No gallop, rub or murmur. ABDOMEN: Fundus firm at 2 cm below the umbilicus in the midline. Soft, nontender, nondistended, with normal bowels sounds throughout. EXTREMITIES: No cyanosis, clubbing, or edema. No varicosities. NEUROLOGIC: Normal gait and balance. Normal deep tendon reflexes at bilateral patella 2+/2, equal without clonus. PSYCHIATRIC: alert and oriented x3. Normal speech pattern, eye contact and affect. SKIN: Warm, dry, and well perfused. Good turgor. No lesions, nodules or rashes. Const: Vital Signs, click to edit/add: Vital Signs - 24 hr 02/01/24 08:50 02/01/24 09:16 02/01/24 12:12 Temperature 97.6 F 98.1 F Pulse Rate [Pulse Oximeter] 81 84 Respiratory Rate 16 16 16 Blood Pressure [Ri ght Arm] 116/72 105/64 Pulse Oximetry 98 98 Oxygen Delivery Me thod Room Air Room Air 02/01/24 12:16 02/01/24 14:00 02/01/24 16:29 Temperature 98.3 F 98.1 F Pulse Rate [Pulse Oximeter] 87 84 Respiratory Rate 16 22 18 Blood Pressure [Ri ght Arm] 120/73 120/75 Pulse Oximetry 99 98 Oxygen Delivery Me thod Room Air Room Air 02/01/24 20:22 02/02/24 00:12 02/02/24 04:16 Temperature 98.2 F 98.3 F Pulse Rate [Pulse Oximeter] 91 76 Respiratory Rate 18 16 16 Blood Pressure [Ri ght Arm] 130/83 120/74 122/74 Pulse Oximetry 100 99 98 Oxygen Delivery Me thod Room Air Room Air Room Air OB - DS: Summary Hospital Course Hospital Course: The patient is a 24 year old G 2 P 1 now 2 at 36 weeks 2 days gestation that was admitted to the Center on 01/31/24 for severe preeclampsia and repeat section. She had an uncomplicated delivery. She delivered a viable male . She is bottle feeding. the patient has done well. Peripartum Data Procedures: Procedures Operation Date: 01/31/24 11:30 Actual Procedure Side Surgeon p Repeat Section Cristel Bravo MD Gender: Male Time Spent with Patient Time attestation: Total time spent providing and/or coordinating discharge services: Discharge Plan Discharge Disposition: Home, Self-Care Date of Admission: 01/31/24 08:49 Attending Provider on Discharge: Odette Pereira Primary Care Provider: Provider,Not a Local Condition: Stable Anticipated Discharge Date/Time: 02/02/24 15:00 Discharge Medications: New docusate sodium 100 mg Capsule 100 mg PO BID PRN (Reason: constipation) Qty: 100 0RF ibuprofen 600 mg Tablet 600 mg PO Q6H PRN (Reason: Pain) Qty: 30 0RF oxycodone 5 mg Tablet 5 - 10 mg PO 3XD PRN (Reason: Pain) Qty: 21 0RF Continued aspirin 81 mg capsule 81 mg PO QDAY Patient Comments: 6am on 01/31/2024 triamcinolone acetonide 0.1 % ointment 1 applic topical TID PRN (Reason: itching) Qty: 15 0RF Changed labetalol 200 mg tablet 200 mg PO QAM AND QHS Qty: 60 1RF Patient Comments: 6am on 01/14/2024 Discontinued Classic 28 mg iron- 800 mcg tablet 1 tab PO QDAY Patient Comments: 6am on 01/30 Discharge Orders: Discharge Order (Routine); Ordered 02/02/24 Ordered By: Odette Pereira Patient Education: Preeclampsia and Eclampsia After Delivery (GEN), (DC) Additional Instructions: ACTIVITY RESTRICTIONS: * Nothing vaginally for 6 weeks: no tampons/intercourse * No driving while taking narcotic pain medication during the day. 1-2 weeks. Okay to be the passenger anytime. * Lifting restriction: Maximum of 20 pounds for 6 weeks. * High impact or core exercises: 6 weeks. * Submerge the incision in water (bath/pool/rebollar): 2 weeks. * Off of work/school for a minimum of 8 weeks NO RESTRICTIONS for: * Walking * Going up/down stairs * Showering Symptoms to report to doctor: -Bleeding that saturates more than one pad per hour ?-Passing clots larger than the size of a golf ball ?-Pain not relieved by prescribed medication ?-Fever above 100.4 degrees Fahrenheit ?-A foul vaginal odor ?-Difficulty in emotions, mood and functions ?-Thoughts of hurting yourself and/or ?-Painful, reddened area in your breast ?-Any drainage, redness or tenderness in your IV/epidural site ?-Severe headache that doesn't improve after taking medications ?-Changes in vision, including temporary loss of vision, blurred vision, and/or light sensitivity ?-Upper abdominal pain (usually under ribs on the right side) ?-Decrease in urination or painful, frequent urinating ?-Chest pain ?-Shortness of breath ?-Tenderness or pain with redness and/swelling in the calf(s) of your leg Follow-up: 1. [facility] Tuesday[facility]2024 or Tuesday02/07/2024 for an incision check and blood pressure check. 2. 2 week visit: Blood pressure check, screen for anxiety and depression, discuss contraceptive options. 2. A 6 week visit for an annual physical exam. Discharge Diet: Regular Follow Up Appointments: Provider,Not a Local [Primary Care Provider] - [facility] [Provider Group] Forms: [employer]th Info Instructions
[2024-02-02] MEDS: DOCUSATE SODIUM 100 MG CAPSULE PO (08:57)
[2024-02-02] MEDS: LABETALOL HCL 100 MG TABLET 200 MG PO (08:57)
[2024-02-02 09:07] VITALS: BP 124/79; PULSE 73; RESP 16; TEMP 36.8; O2SAT 98
[2024-02-02] MEDS: ACETAMINOPHEN 500 MG TABLET 1000 MG PO (09:17)
[2024-02-02 12:02] VITALS: TEMP -15.5; TEMP 4
[2024-02-02] MEDS: ONDANSETRON 2 MG/ML inj 4 MG IVP (13:53)
== END 2024-02-02 16:55 | disposition home or self-care (01) | DRG 540 ==
LOC: OB OUT 08:50 → OB 08:50
PROVIDERS: Admitting Provider Obstetrics & Gynecology; Visit Provider Obstetrics & Gynecology
PROC: 10D00Z1 Extraction of Products of Conception, Low, Open Approach (ICD-10-PCS; CPT 59514; principal; 2024-01-31 12:15)
DX: O11.4 Pre-existing hypertension with pre-eclampsia, complicating childbirth (principal); O34.219 Maternal care for unspecified type scar from previous cesarean delivery; O99.214 Obesity complicating childbirth; O99.892 Other specified diseases and conditions complicating childbirth; K66.0 Peritoneal adhesions (postprocedural) (postinfection); O99.013 Anemia complicating pregnancy, third trimester; D64.9 Anemia, unspecified; O99.344 Other mental disorders complicating childbirth; F32.A Depression, unspecified; F98.8 Other specified behavioral and emotional disorders with onset usually occurring in childhood and adolescence; J45.20 Mild intermittent asthma, uncomplicated; G89.18 Other acute postprocedural pain; Z3A.36 36 weeks gestation of pregnancy; Z37.0 Single live birth
CPT/HCPCS: 01961; 36415; 64488; 76942; 80053; 82565; 82570; 83735; 84156; 84450; 84460; 84520; 84550; 85025; 85027; 85384; 85610; 85730; 86850; 86900; 86901; 86922; 88307; 99140; A9270; C9290; J0665; J0690; J1100; J1650; J1885; J2274; J2371; J2405; J2590; J3475; J7120

== ENCOUNTER 2024-08-27 11:02 | Emergency (ER) | payer BC, SELFPAY ==
[2024-08-27 11:08] VITALS: BP 149/86; PULSE 82; RESP 16; TEMP 35.5; O2SAT 97; BMI 42.0
[2024-08-27] MEDS: MECLIZINE HCL 25 MG TABLET PO (11:54)
--- NOTE | 2024-08-27 11:57 | CRLHL7_ITS ---
For Patients: As a result of the Century Cures Act, medical imaging exams and procedure reports are released immediately into your electronic medical record. You may view this report before your referring provider. If you have questions, please contact your health care provider. INDICATION: Headache. Trauma 1 week prior. COMPARISON: None TECHNIQUE: CT examination of the head was performed as axial sections without intravenous contrast. Images were obtained from the vertex of the skull through the skull base. Please note that all CT scans at this facility use dose modulation, iterative reconstruction, and/or weight-based dosing when appropriate to reduce radiation dose to as low as reasonably achievable. FINDINGS: The brain shows no sign of mass lesion, mass effect, hemorrhage, or edema. The ventricles and sulci are normal in appearance for the patient`s age. The visualized portions of the orbits are normal in appearance. The osseous structures are normal in their appearance with no sign of abnormality in the skull base or calvarium. IMPRESSION: Normal unenhanced head CT. Please note that all CT scans at this facility use dose modulation, iterative reconstruction, and/or weight-based dosing when appropriate to reduce radiation dose to as low as reasonably achievable. Dictated by Pavel Allan MD @ 08/27/2024 12:32:43 PM (Electronically Signed)
[2024-08-27] MEDS: KETOROLAC 15 MG/ML inj IVP (12:01)
[2024-08-27] MEDS: diphenhydrAMINE 50 MG/ML inj 25 MG IVP (12:03)
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
[2024-08-27] MEDS: METOCLOPRAMIDE HCL 5 MG/ML INJ 10 MG IVP (12:14)
[2024-08-27 12:55] VITALS: BP 126/76; PULSE 69; RESP 16; O2SAT 99
== END 2024-08-27 13:19 | disposition home or self-care (01) ==
PROVIDERS: Emergency Provider Student in an Organized Health Care Education/Training Program
DX: R51.9 Headache, unspecified (principal); W00.9XXA Unspecified fall due to ice and snow, initial encounter
CPT/HCPCS: 70450; 96374; 96375; 99284; A9270; J1200; J1885; J2765

== ENCOUNTER 2024-11-05 11:58 | Outpatient (CLI) | payer BC, SELFPAY | END 2024-11-05 11:59 | disposition home or self-care (01) | LOC: US 11:58 | PROVIDERS: Visit Provider Advanced Practice Midwife | DX: Z34.91 Encounter for supervision of normal pregnancy, unspecified, first trimester (principal); Z3A.10 10 weeks gestation of pregnancy | CPT/HCPCS: 76801; 82565; 82570; 83021; 84156; 84450; 84460; 84520; 84550; 86592; 86703; 86704; 86706; 86762; 86787; 86803; 86850; 86900; 86901; 87086; 87340 ==

== ENCOUNTER 2024-11-05 13:09 | Outpatient (CLI) | payer BC, SELFPAY | END 2024-11-05 13:10 | disposition home or self-care (01) | PROVIDERS: Visit Provider Advanced Practice Midwife | DX: Z34.81 Encounter for supervision of other normal pregnancy, first trimester (principal) | CPT/HCPCS: 82565; 82570; 83020; 83021; 84156; 84450; 84460; 84520; 84550; 85660; 86592; 86703; 86704; 86706; 86762; 86787; 86803; 86850; 86900; 86901; 87086; 87340 ==

== ENCOUNTER 2024-11-18 17:33 | Outpatient (REF) | payer BC, SELFPAY ==
[2024-11-19 03:31] LABS: Total Protein Urine < 5 mg/dL
[2024-11-19 03:33] LABS: Creatinine Urine 126.3 mg/dL; Protein Creatinine Ratio Urine 0.04 (0-0.19)
[2024-11-19 20:59] LABS: Collection Time Urine 24 Hours; Total Protein 24 Hour Urine 28.7 mg/Day; Total Volume 24 Hour Urine 575 ml; Urine Creatinine mg/24 Hour 726 mg/Day
== END 2024-11-18 17:34 | disposition home or self-care (01) ==
LOC: LAB 17:33
PROVIDERS: Advanced Practice Midwife; Visit Provider Midwife
DX: Z34.91 Encounter for supervision of normal pregnancy, unspecified, first trimester (principal); Z87.59 Personal history of other complications of pregnancy, childbirth and the puerperium
CPT/HCPCS: 82570; 84156

== ENCOUNTER 2024-12-03 13:36 | Outpatient (CLI) | payer BC, SELFPAY | END 2024-12-03 13:37 | disposition home or self-care (01) | PROVIDERS: Visit Provider Obstetrics & Gynecology | DX: O10.912 Unspecified pre-existing hypertension complicating pregnancy, second trimester (principal); Z3A.15 15 weeks gestation of pregnancy; Z11.3 Encounter for screening for infections with a predominantly sexual mode of transmission | CPT/HCPCS: 84450; 87491; 87591 ==

== ENCOUNTER 2025-01-16 07:40 | Outpatient (CLI) | payer BC, SELFPAY | END 2025-01-16 07:41 | disposition home or self-care (01) | LOC: US 07:40 | PROVIDERS: Visit Provider Obstetrics & Gynecology | DX: O10.912 Unspecified pre-existing hypertension complicating pregnancy, second trimester (principal); O35.03X0 Maternal care for (suspected) central nervous system malformation or damage in fetus, choroid plexus cysts, not applicable or unspecified; Z3A.21 21 weeks gestation of pregnancy | CPT/HCPCS: 76811 ==

== ENCOUNTER 2025-02-13 10:14 | Outpatient (CLI) | payer BC, SELFPAY | END 2025-02-13 10:15 | disposition home or self-care (01) | LOC: US 10:14 | PROVIDERS: Visit Provider Obstetrics & Gynecology | DX: Z36.2 Encounter for other antenatal screening follow-up (principal); O99.212 Obesity complicating pregnancy, second trimester; O10.912 Unspecified pre-existing hypertension complicating pregnancy, second trimester; Z3A.25 25 weeks gestation of pregnancy | CPT/HCPCS: 76816 ==

== ENCOUNTER 2025-03-04 09:05 | Outpatient (CLI) | payer BC, SELFPAY ==
--- NOTE | 2025-03-04 09:15 | CRLHL7_ITS ---
For Patients: As a result of the Century Cures Act, medical imaging exams and procedure reports are released immediately into your electronic medical record. You may view this report before your referring provider. If you have questions, please contact your health care provider. OB ULTRASOUND LMP: 08/20/2024. KALI by LMP: 05/27/2025. GA: 28 w, 0 d. Single. Comparison: 02/13/2025 and 01/16/2025. INDICATION: Chronic hypertension. TECHNIQUE: Multiple transabdominal grayscale, color, and M-Mode Doppler images were obtained. CERVIX: Not visualized. POSITIONING: Vertex. AMNIOTIC FLUID: 4.8 cm. SDP (N: greater than 2 x 1 cm) PLACENTA: Technique: Transabdominal. PLACENTA POSITION: Posterior. DOPPLER: heart rate: 144 bpm. BIOMETRY: BPD: 6.6 cm. 26 w, 5 d, 7 percent. HC: 24.4 cm. 26 w, 4 d, <3 percent. AC: 23.5 cm. 27 w, 6 d, 36 percent. FL: 5.4 cm. 27 w, 6 d, 57 percent. FL/AC ratio: 23.12 percent. HC/AC ratio: 1.04. EFW: 1146 g. Weight: 2 lbs, 8 oz. age by this US: 27 w, 3 d. KALI by this US: 05/31/2025. Percentile by KALI: 34 percent. IMPRESSION: 1. Estimated weight is at the 34th percentile. 2. BPD 7th percentile. HC less than 3rd percentile. Ben Bunch M.D. Body/Diagnostic Radiologist [email or web address] SHERITA/amelia cisneros/Dictated by: Ben Bunch MD @ 03/05/2025 3:57:00 PM (Electronically Signed)
== END 2025-03-04 09:06 | disposition home or self-care (01) ==
LOC: US 09:05
PROVIDERS: Visit Provider Obstetrics & Gynecology
DX: O10.913 Unspecified pre-existing hypertension complicating pregnancy, third trimester (principal); Z3A.28 28 weeks gestation of pregnancy; J02.9 Acute pharyngitis, unspecified
CPT/HCPCS: 76816; 86592

== ENCOUNTER 2025-03-04 10:16 | Emergency (ER) | payer BC, SELFPAY ==
--- OUTSIDE RECORDS SUMMARY | 2025-03-04 10:19 | XMS_ITS | Patient Health Record ---
Author Organization [facility] Address [address] [place] [address] Support Name Relationship Address Phone Dori Donaldson Guarantor Unknown Reason For Referral No Information Plan Of Treatment No Information Insurance Providers Payer Name Payer Address Payer Phone Subscriber Number Group Number Insured Name Patient Relationship to Insured Coverage Start Date Coverage End Date PREFERRED [employer] [address] [address] BILL [place] [id number] Dori Donaldson [facility] has Financial Responsibility
--- OUTSIDE RECORDS SUMMARY | 2025-03-04 10:20 | XMS_ITS | Clinical Summary ---
Author Organization [place] Address [facility] [place] [address] Care Team Providers Care Traffic Attendant Name Role Phone Germán Rosario MD Primary Care Provider [phone] Allergies Active Allergy Reactions Criticality Noted Date Comments [place] Grass Extract 12/22/2009 Nasal congestion Molds & Smuts 12/22/2009 Nasal congestion Nuts 12/22/2009 Nasal congestion Seasonal Allergies 11/05/2003 mosquito bites Hydrocodone-Acetamino phen Other (See Comments) High 10/17/2013 Causes severe headache Medications HYDROCORTISONE (TOPICAL) 2.5 % EX CREA apply to affected skin bid prn 15 0 4 Active ALBUTEROL 90 MCG/ACT IN AERS Take 2 puffs q 4-6hours prn cough or wheezing 2 4 4 Active Amphetamine-Dex troamphetamine (ADDERALL XR PO) Take 20 mg by mouth daily Extended release capsules, takes two capsules every morning Active IBUPROFEN PO Takes 800 mg every six to eight hours as needed for pain Active venlafaxine (EFFEXOR) 75 MG tablet Take by mouth 3 times daily Active metoclopramide (REGLAN) 10 MG tablet Take 1 tablet (10 mg) by mouth 4 times daily as needed (nausea/vomiting ) 10 tablet 0 7 Active albuterol (2.5 MG/3ML) 0.083% neb solution Take 1 vial (2.5 mg) by nebulization every 6 hours as needed for shortness of breath / dyspnea or wheezing 75 mL 0 7 Active guaiFENesin-cod eine (ROBITUSSIN AC) 100-10 MG/5ML SOLN solution Take 5-10 mLs by mouth every 4 hours as needed for cough 120 mL 0 7 Active benzonatate (TESSALON) 200 MG capsule Take 1 capsule (200 mg) by mouth 3 times daily as needed for cough 21 capsule 0 7 Active benzonatate (TESSALON) 200 MG capsule Take 1 capsule (200 mg) by mouth 3 times daily as needed for cough 21 capsule 7 Active dexamethasone (DECADRON) 4 MG tablet Take 4 tablets (16 mg) by mouth once for 1 dose 4 tablet 7 Active Active Problems Problem Noted Date Diagnosed Date Backache 04/30/2014 Hirsutism 04/29/2014 Loss of height 04/29/2014 Mild intermittent asthma 03/08/2005 Attention deficit hyperactivity disorder (ADHD) 03/08/2005 Overview (05/15/2015): Problem list name updated by automated process. Provider to review Precocious sexual development and puberty 2003 Overview (05/15/2015): Problem list name updated by automated process. Provider to review Allergic rhinitis 11/09/2003 Overview (05/15/2015): Problem list name updated by automated process. Provider to review Obesity Overview (05/15/2015): Problem list name updated by automated process. Provider to review Resolved Problems Problem Noted Date Diagnosed Date Resolved Date Attention deficit hyperactiv ity disorder (ADHD) 03/08/2005 03/08/2005 Overview (05/15/2015): Problem list name updated by automated process. Provider to review Wheezing 11/09/2003 03/08/2005 Immunizations Immunization Administration Dates Next Due DTAP (<7y) 11/22/2002, 2,1998,1998, HIB (PRP-T) 12/13/2001,1998,1998 HepB 01/02/1999,1998,1998 Influenza (IIV3) PF 06/08/2005,05/29/2004 MMR (MMRII) 11/22/2002,12/13/2001 OPV, trivalent, live 12/13/2001,1998,05/08,1998 Poliovirus, inactivated (IPV) 11/22/2002 Varicella (Varivax) 11/22/2002 Family History Medical History Relation Comments Respiratory Father asthma Relation Status Comments Father Social History Tobacco Use Types Packs/Day Years Used Date Smoking Tobacco: Never Assessed Comments:smoking outside Alcohol Use Standard Drinks/Week Comments Yes 0 (1 standard drink = 0.6 oz pur e alcohol) occassionaly per mom Adolescent Education Answer Date Record ed Getting School Help Needed Not on file 05/30 Comments No Sex and Gender Information Value Date Recorded Sex Assigned at Not on file 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 Gender Identity Not on file Sexual Orientation Not on file Last Filed Vital Signs Vital Sign Reading Time Taken Comments Blood Pressure 145/87 11/02/2022 12:13 PM CDT Pulse 84 11/02/2022 12:13 PM CDT Temperature 36.8 C (98.3 F) 11/02/2022 12:13 PM CDT Respiratory Rate 18 11/02/2022 12:13 PM CDT Oxygen Saturation 99% 11/02/2022 12:13 PM CDT Inhaled Oxygen Concentration - - Weight 108.9 kg (240 lb) 11/02/2022 12:13 PM CDT Height 152.4 cm (5') 11/02/2022 12:13 PM CDT Body Mass Index 46.87 11/02/2022 12:13 PM CDT Plan of Treatment Health Maintenance Due Date Last Done Comments ANNUAL REVIEW OF HM ORDERS 1998 ASTHMA ACTION PLAN 1998 ASTHMA CONTROL TEST 1998 HEPATITIS C SCREENING 01/06/2016 YEARLY PREVENTIVE VISIT 03/15/2024 03/15/20 23, 03/07/2007, 03/08/2005, Additional history exists COVID-19 VACCINE ( season) 2024 PHQ-2 (once per calendar year) 2024 INFLUENZA VACCINE (#1) 2025 3, 05/07/2013, 04/29/2011, Additional history exists PAP 07/26/2026 07/26/2023, 07/15, 03/13/2019, Additional history exists ADVANCE CARE PLANNING 11/04/2027 11/03/2022 DTAP/TDAP/TD VACCINE (8 - Td or Tdap) 04/10/2029 04/10/2019, 11/13/2009, 11/22/2002, Additional history exists ZOSTER VACCINE (1 of 2) 01/06/2048 HEPATITIS B VACCINE Completed 01/02/1999, 01/02/1999, 01/02/1999, Additional history exists HPV VACCINE Completed 09/18/2013, 11/2013, 04/06/2013, Additional history exists HIV SCREENING Completed 12/18/2018 CHLAMYDIA SCREENING Discontinued 01/23/2019 PNEUMOCOCCAL VACCINE: PEDIATRICS (0 to 5 YEARS) AND AT-RISK PATIENTS (6 to 49 YEARS) Completed 03/15/2023 MENINGITIS VACCINE Aged Out No longer eligible based on patient's age to complete this topic Insurance [place] [facility] BLUE PLUS ADVANTAGE ID Care Teams Traffic Attendant Relationship Specialty Start Date End Date Germán Rosario MD [facility] [id number] [place] [phone] PCP - General Family Practice 01/12/12
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
--- OUTSIDE RECORDS SUMMARY | 2025-03-04 10:20 | XMS_ITS ---
Author Organization [facility] Source Produ ction (ClinicalSummary Clone) Address Unknown Care Team Providers Care Director News Name Role Phone Unavailable Primary Care Physician Unavailab le Results * [UNITY] ANEUPLOIDY NIPT Performed by: [employer] Value Range Date Fraction 7.0% 11/15/2024 06 :17 am UTC 22q11.2 Microdeletion LOW RISK <1 in 10,000 11/15/2024 06:17 am UT Sex Chromosome Aneuploidy NOT DETECTED 06:17 am UTC Monosomy X LOW RISK <1 in 10,000 2024 06:17 am UTC Trisomy 13 LOW RISK <1 in 10,000 2024 06:17 am UTC Trisomy 18 LOW RISK <1 in 10,000 2024 06:17 am UTC Trisomy 21 LOW RISK <1 in 10,000 2024 06:17 am UTC Sex MALE 11/15/2024 06:1 7 am UTC Gestation BRIONES 11/16/19 06:17 am UT For detailed report, see PDF See PDF 11/15/2024 06:17 am UTC 11/15/2024 06:1 7 am UT Social History Observation Value Start Date End Date
--- OUTSIDE RECORDS SUMMARY | 2025-03-04 10:20 | XMS_ITS ---
Author Organization [facility] (ClinicalSummary Clone) Address Unknown Care Team Providers Care Power Plant Electrician Name Role Phone Unavailable Primary Care Physician Unavailab le Results * [UNITY] CARRIER SCREEN Performed by: [employer] Component Value Range Date Sickle Cell Disease/Beta-Thalassemia/Hemo globinopathies carrier screen NEGATIVE 11/15/2024 03:20 am UTC Alpha-Thalassemia carrier screen NEGATIVE 11/15/2024 03:20 am UT Cystic Fibrosis carrier screen NEGATIVE 11/15/2024 03:20 am UT Spinal Muscular Atrophy carrier screen NEGATIVE 3 SMN1 copies, SNP not present 11/15/2024 03:20 am UT For detailed report, see PDF See PDF 11/15/2024 03:20 am UTC 11/15/2024 03:2 0 am UT Social History Observation Value Start Date End Date
[2025-03-04 10:27] VITALS: BP 118/76; PULSE 79; RESP 18; TEMP 36.6; O2SAT 97; BMI 42.4
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
== END 2025-03-04 11:21 | disposition home or self-care (01) ==
PROVIDERS: Emergency Provider Family Medicine
DX: J04.0 Acute laryngitis (principal)
CPT/HCPCS: 99283; 99284

== ENCOUNTER 2025-03-11 07:56 | Outpatient (CLI) | payer BC, SELFPAY | END 2025-03-11 07:57 | disposition home or self-care (01) | LOC: NFLDREF 03-12 14:16 | PROVIDERS: Visit Provider Obstetrics & Gynecology | DX: O10.913 Unspecified pre-existing hypertension complicating pregnancy, third trimester (principal); Z3A.28 28 weeks gestation of pregnancy | CPT/HCPCS: 82951; 82952 ==

== ENCOUNTER 2025-04-01 08:09 | Outpatient (CLI) | payer BC, SELFPAY ==
--- NOTE | 2025-04-01 08:15 | CRLHL7_ITS ---
For Patients: As a result of the Cures Act, medical imaging exams and procedure reports are released immediately into your electronic medical record. You may view this report before your referring provider. If you have questions, please contact your health care provider. OB ULTRASOUND KALI by LMP: 05/27/2025. GA: 32 w, 0 d. Single. Comparison: Ultrasound 03/04/2025, 02/13/2025, 01/16/2025. INDICATION: Growth assessment. with gestational diabetes maternal. TECHNIQUE: Real time grayscale imaging of the fetus was performed. Transabdominal. CERVIX: Not visualized. POSITIONING: Vertex. AMNIOTIC FLUID: 4.6 cm. SDP (N: greater than 2 x 1 cm) PLACENTA: Technique: Transabdominal. PLACENTA POSITION: Posterior. DOPPLER: heart rate: 161 bpm. BIOMETRY: BPD: 7.7 cm. 31 w, 0 d, 14 percent. HC: 29 cm. 32 w, 0 d, 15 percent. AC: 29 cm. 33 w, 0 d, 77 percent. FL: 6.2 cm. 32 w, 0 d, 37 percent. FL/AC ratio: 21.28 percent. HC/AC ratio: 1.0. EFW: 1968 g. Weight: 4 lbs, 5 oz. age by this US: 32 w, 0 d. KALI by this US: 05/27/2025. Percentile by KALI: 53 percent. IMPRESSION: 1. Single intrauterine fetus cephalic position. 2. Posterior placenta, no previa. 3. Growth parameters and dates as given above. The study shows appropriate interval growth. 4. The amniotic fluid volume is normal. ELENO VERDUZCO MD FACR Pediatric/Diagnostic Radiologist [facility] Transcribed: 10:29 a.m[address] [email or web address] jj/Dictated by: Eleno Verduzco MD @ 04/02/2025 9:55:00 AM (Electronically Signed)
== END 2025-04-01 08:10 | disposition home or self-care (01) ==
LOC: US 08:09
PROVIDERS: Visit Provider Obstetrics & Gynecology
DX: O24.419 Gestational diabetes mellitus in pregnancy, unspecified control (principal); Z3A.32 32 weeks gestation of pregnancy
CPT/HCPCS: 76816

== ENCOUNTER 2025-04-16 07:15 | Outpatient (CLI) | payer BC, SELFPAY ==
--- NOTE | 2025-04-16 07:15 | CRLHL7_ITS ---
For Patients: As a result of the Century Cures Act, medical imaging exams and procedure reports are released immediately into your electronic medical record. You may view this report before your referring provider. If you have questions, please contact your health care provider. INDICATION: Obesity Technique: Multiple transabdominal grayscale color and M-mode Doppler images of the fetus were obtained FINDINGS: breathing movements: 2 Gross body movements: 2 tone: 2 Amniotic fluid volume: 2 Total: 03/22 Amniotic Fluid SDP: 4.3 cm. Heart rate is 150 beats per minute. Vertex lie. IMPRESSION: Normal biophysical profile score of 8/8. Dictated by Ben Bunch MD @ 04/16/2025 8:29:54 AM (Electronically Signed)
== END 2025-04-16 07:16 | disposition home or self-care (01) ==
PROVIDERS: Visit Provider Obstetrics & Gynecology
DX: O99.210 Obesity complicating pregnancy, unspecified trimester (principal); E66.01 Morbid (severe) obesity due to excess calories; Z68.42 Body mass index [BMI] 45.0-49.9, adult
CPT/HCPCS: 76819

== ENCOUNTER 2025-04-16 08:13 | Outpatient (CLI) | payer BC, SELFPAY | END 2025-04-16 08:14 | disposition home or self-care (01) | PROVIDERS: Visit Provider Obstetrics & Gynecology | DX: O10.919 Unspecified pre-existing hypertension complicating pregnancy, unspecified trimester (principal); O99.210 Obesity complicating pregnancy, unspecified trimester; E66.01 Morbid (severe) obesity due to excess calories; Z68.42 Body mass index [BMI] 45.0-49.9, adult | CPT/HCPCS: 82565; 82570; 82728; 84156; 84450; 84460 ==

== ENCOUNTER 2025-04-18 10:19 | Outpatient (CLI) | payer BC, SELFPAY ==
--- NOTE | 2025-04-18 10:45 | CRLHL7_ITS ---
For Patients: As a result of the Cures Act, medical imaging exams and procedure reports are released immediately into your electronic medical record. You may view this report before your referring provider. If you have questions, please contact your health care provider. OBSTETRICAL ULTRASOUND ??? BIOPHYSICAL PROFILE, 04/18/2025 INDICATION: Nonreactive NST, CHTN. CLINICAL HISTORY: LMP: 08/20/2024 KALI by LMP: 05/27/2025 Gestational Age: 34 weeks 3 days COMPARISON: 04/16/2025, 04/01/2025, 03/04/2025. TECHNIQUE: Real-time espinoza-scale transabdominal imaging of the fetus was performed. FINDINGS: Fetus: Single Cervix: Not visualized positioning: Vertex Amniotic Fluid: 4.2 cm SDP BIOPHYSICAL PROFILE: Gross body movements: 2 tone: 2 Respiratory activity: 2 Amniotic fluid SDP: 2 Total score: 8 Placenta technique: Transabdominal Placenta position: Posterior heart rate: 135 bpm IMPRESSION: Normal biophysical profile score of 8/8. LOKESH HEADLEY M.D. Diagnostic Radiologist [email or web address] Transcribed: 11:[address]/Dictated by: Lokesh Headley MD @ 04/18/2025 11:17:00 AM (Electronically Signed)
== END 2025-04-18 10:20 | disposition home or self-care (01) ==
LOC: US 10:20
PROVIDERS: Visit Provider Obstetrics & Gynecology
DX: O28.8 Other abnormal findings on antenatal screening of mother (principal); O10.913 Unspecified pre-existing hypertension complicating pregnancy, third trimester; Z3A.34 34 weeks gestation of pregnancy
CPT/HCPCS: 76819

== ENCOUNTER 2025-04-22 10:04 | Outpatient (CLI) | payer BC, SELFPAY ==
--- NOTE | 2025-04-22 10:15 | CRLHL7_ITS ---
For Patients: As a result of the Cures Act, medical imaging exams and procedure reports are released immediately into your electronic medical record. You may view this report before your referring provider. If you have questions, please contact your health care provider. OB ULTRASOUND BIOPHYSICAL PROFILE, 04/22/2025 CLINICAL HISTORY: Obesity. COMPARISON: 04/16/2025, 04/18/2025. TECHNIQUE: Real time espinoza scale imaging of the fetus was performed. Transabdominal imaging performed. FINDINGS: LMP: 08/20/2024. KALI by LMP: 05/27/2025. GA: 35 weeks 0 days. Cervix: Not visualized. Positioning: Vertex. Amniotic Fluid: 2.9 cm SDP. BIOPHYSICAL PROFILE Gross Body Movements: 2 Tone: 2 Respiratory Activity: 2 Amniotic Fluid SDP: 2 Total Score: 8 Placenta: Technique: TA. Placenta Position: Posterior. Dopplers: Heart Rate: 150 bpm. IMPRESSION: Normal biophysical profile score of 8/8. Lokesh Washington M.D. Diagnostic Radiologist [email or web address] Transcribed: 10:53 am DW/Dictated by: Lokesh Washington MD @ 04/22/2025 10:48:00 AM (Electronically Signed)
== END 2025-04-22 10:05 | disposition home or self-care (01) ==
LOC: US 10:04
PROVIDERS: Visit Provider Obstetrics & Gynecology
DX: O10.913 Unspecified pre-existing hypertension complicating pregnancy, third trimester (principal); E66.01 Morbid (severe) obesity due to excess calories; Z68.42 Body mass index [BMI] 45.0-49.9, adult; Z3A.35 35 weeks gestation of pregnancy
CPT/HCPCS: 76819

== ENCOUNTER 2025-04-22 10:05 | Outpatient (CLI) | payer BC, SELFPAY | END 2025-04-22 10:06 | disposition home or self-care (01) | LOC: NFLDREF 04-25 16:48 | PROVIDERS: Visit Provider Obstetrics & Gynecology | DX: O10.913 Unspecified pre-existing hypertension complicating pregnancy, third trimester (principal); E66.01 Morbid (severe) obesity due to excess calories; Z68.42 Body mass index [BMI] 45.0-49.9, adult; Z3A.35 35 weeks gestation of pregnancy | CPT/HCPCS: 82565; 82570; 84156; 84450; 84460 ==

== ENCOUNTER 2025-04-26 17:11 | Inpatient (IN) | payer BC, SELFPAY ==
[2025-04-26] VITALS (129 sets, daily range): BP systolic 103–150; BP diastolic 52–88; PULSE 94–137; RESP 16–32; TEMP 36.8–38; O2SAT 81–100; BMI 57.2
--- NOTE | 2025-04-26 13:44 | W.PM.OBO ---
OB Outpatient HPI History of Present Illness Date Seen: 04/26/25 History of Present Illness: Kaitlynn is a 25 yo woman at 35 4/7 weeks' gestation who presents with chief complaint of decreased movement and new onset redness of her right leg. She has not felt movement today. In addition, she notes a new onset of redness in her lower leg. She has had an episode like this before, which happened just prior to the delivery of her last via repeat . I assisted in the surgery, which was done in the setting of severe preeclampsia superimposed on chronic hypertension. Review of previous ER notes regarding the cellulitis that she had notes treatment with antibiotics, but she does not recall this. She reports temperature of 100.4 this morning at 11:00 a.m., but this spontaneously resolved. She is taking labetalol 100 mg b.i.d. and reports normal blood pressures. OB Problem List: # Gestational diabetes, currently diet-controlled - Microbiology Professor visit arranged - Serial growth US # CHTN - started labetolol 100mg BID on 04/16 twice weekly ANT weekly preE labs - 37w0d - 39w6d delivery per ACOG for cHTN on meds, scheduled at 38 #Elevated AST-55 with NOB labs > normalized on 12/03 x level 2 US and MFM consult x 24hr urine normal Serial growth US as below, testing for obesity Delivery at 38-39 weeks per M # Hx of Severe Preeclampsia baseline labs ordered with NOB - as above recommended Baby ASA at 12 weeks # Hx of two prior C/S. Prefers repeat with bilateral salpingectomy 05/13 = 38 0/7 weeks Scheduling form submitted 04/01 #Undesired fertility x sign federal consent for sterilization at viability - completed 02/18 # Anemia On oral iron QOD Hemoglobin 9.9 04/22/2025. Ferritin 5.8 on 04/16/2025 Refer for iron infusion therapy enter 04/22/25 #Morbid obesity - BMI 48.7 at new Ob #Excess weight gain in - 17lbs at 23 weeks (11-20 total recommended) Referral to customer field representative- declined Referral to anesthesia Weekly testing starting at 34 weeks Serial growth US starting at 28 weeks # Anxiety/Depression/ADD discontinued all medications with positive test previously on Adderall XR 20mg, Bupropion XR 150mg and Venlafaxine 75mg Meds Home Medications and Allergies Home Medications ?Medication ?Instructions ?Recorded ?Confirmed ?Type bupropion HCl 150 mg 24 hr tablet, 150 mg PO DAILY 08/27/24 04/26/25 History extended release Held on 12/03/24. Instructions: dextroamphetamine-amphetamine ER PO 08/27/24 04/25/25 History 20 mg 24hr capsule,extend release (Adderall XR) Held on 12/03/24. Instructions: venlafaxine 75 mg capsule,extended 225 mg PO DAILY 08/27/24 04/26/25 History release 24 hr Held on 12/03/24. Instructions: aspirin 81 mg chewable tablet 81 mg PO QDAY 12/03/24 04/26/25 History docosahexaenoic acid 200 mg mg PO DAILY 12/03/24 04/25/25 History capsule ( DHA) ferrous sulfate 325 mg (65 mg 325 mg PO QMWF #30 tabs 03/04/25 04/26/25 Rx iron) tablet blood sugar diagnostic (Blood #100 ea 03/11/25 04/26/25 Rx Glucose Test strips) blood-glucose meter #1 ea 03/11/25 04/26/25 Rx lancets (Accu-Chek Softclix #100 ea 03/11/25 04/26/25 Rx Lancets) labetalol 100 mg tablet 100 mg PO BID #60 tabs 04/16/25 04/26/25 Rx amoxicillin 875 mg tablet 875 mg PO BID 7 days #14 tabs 04/26/25 Rx Allergies Allergy/AdvReac Type Severity Reaction Status Date / Time acetaminophen (From Vicodin) AdvReac Intermediate Headache Verified 04/26/25 13:15 hydrocodone (From Vicodin) AdvReac Intermediate Headache Verified 04/26/25 13:15 [facility] Medical History (Updated 04/26/25 @ 15:19 by Violetta Gallagher MD) Cellulitis ?L03.90 - Cellulitis, unspecified (ICD-10) Anemia complicating ?O99.019 - Anemia complicating , unspecified trimester (ICD-10) Severe pre-eclampsia, complicating the puerperium ?O14.15 - Severe pre-eclampsia, complicating the puerperium (ICD-10) Miscarriage ?O03.9 - Complete or unspecified spontaneous without complication (ICD-10) Surgical History (Updated 04/26/25 @ 17:14 by Violetta Gallagher MD) H/O sinus surgery ?Z98.890 - Other specified postprocedural states (ICD-10) Previous delivery affecting ?O34.219 - Maternal care for unspecified type scar from previous delivery (ICD-10) History of tonsillectomy and adenoidectomy ?Z90.89 - Acquired absence of other organs (ICD-10) History of appendectomy ?Z90.49 - Acquired absence of other specified parts of digestive tract (ICD-10) History of ?Z98.891 - History of uterine scar from previous surgery (ICD-10) Social History Narrative: SOCIAL HISTORY: 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 Marital status: Significant other. Protestant/cultural needs: no. Chemical or radiation exposure: no. Pre- tobacco use: no. Pre- alcohol use: no. Current tobacco use: no. Current alcohol use: no. Recreational drug use: History of marijuana use, stopped with positive UPT previous . Denies use this . Dietary restrictions: no. Blood transfusion acceptable in an emergency: yes. PSYCHOSOCIAL HISTORY: History of depression or currently depressed: yes. 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 Problems that will make it hard to make it to appointments: no. What is your current living situation?: I presently have a place to live Problems where you live: no known problems In the past 12 months, utilities in danger of being shut off: no In past 12 months, lack of transportation kept you from medical appts, meetings, work, or getting things needed for daily living: no In the past 12 mos, have been you worried that your food would run out before you had money to buy more?: never true In the past 12 mos, the food you bought just didn't last and you didn't have money to buy more?: never true Smoking Status: Former smoker How often does anyone, including family, friends and others, physically hurt you: never How often does anyone, including family, friends and others, insult or talk down to you: never How often does anyone, including family, friends and others, threaten you with harm: never How often does anyone, including family, friends and others, scream or curse at you: never History History 4 Elective abortions 0 Para 2 Spontaneous abortions 1 Hx # Term Pregnancies 2 Ectopic pregnancies Hx # Pregnancies 1 Multiple births Number of Living Children 2 Past Pregnancies Del. 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 General: No acute distress Psych: Alert and oriented x 3, full affect HEENT: Normocephalic, atraumatic Abdomen: Soft, uncomfortable to palpation, pannus covering lower uterine segment Lower extremities: Bright red and warm patch of edematous skin noted in right lower extremity just above the ankle, primarily anterior but reaching laterally on either side, with crisp borders. Both lower extremities exhibit 2 to 3+ edema. tracing: Over extended monitoring, baseline is varied from 155-170. Accelerations have been present. There are no decelerations. Variability is primarily moderate, but minimal variability is noted at times as well. Labs Labs Complete blood count is notable for white count of 15.92, hemoglobin 10.3, MCV 78, platelets 182 BUN 8, creatinine 0.5 AST 34, ALT 17 Urinalysis shows 1+ protein, 1+ ketones, 5-10 wbc's, moderate squamous epithelial cells and moderate bacteria Urine cultures pending Lower extremity Doppler is negative for DVT in the right lower extremity
--- NOTE | 2025-04-26 14:04 | CRLHL7_ITS ---
For Patients: As a result of the Century Cures Act, medical imaging exams and procedure reports are released immediately into your electronic medical record. You may view this report before your referring provider. If you have questions, please contact your health care provider. INDICATION: rash, edema TECHNIQUE: Venous duplex ultrasound of the right lower extremity utilizing compression with espinoza-scale, color Doppler, and spectral Doppler imaging. COMPARISON: None FINDINGS: There is no sonographic evidence of deep vein thrombosis in the right common femoral, deep femoral, superficial femoral, popliteal, posterior tibial, peroneal, or contralateral common femoral veins. There is no visualized superficial vein thrombosis. The soft tissues are unremarkable. IMPRESSION: No deep vein thrombosis in the right lower extremity. Dictated by Leonard Price MD @ 04/26/2025 2:57:19 PM (Electronically Signed)
[2025-04-26 14:25] LABS: Hematocrit 31.9 % (33.0-51.0); Hemoglobin* 10.3 gm/dL (12.0-16.0); Mean Corpuscular HGB Conc 32 gm/dL (32-36); Mean Corpuscular Hemoglobin 25 pg (26-34); Mean Corpuscular Volume 78 fL (80-100); Red Blood Count 4.09 m/uL (4.00-5.20); White Blood Count* 15.92 K/uL (4.50-11.00)
[2025-04-26 14:26] LABS: Appearance Urine Slightly Cloudy (Clear)
[2025-04-26 14:27] LABS: Slide Review Reflex No
[2025-04-26 14:40] LABS: Alanine Aminotransferase* 17 U/L (4-35); Aspartate Amino Transferase* 34 U/L (12-35); Blood Urea Nitrogen* 8 mg/dL (5-24); Creatinine* 0.5 mg/dL (0.5-1.5); Est. Creatinine Clearance* 121.40; Estimated Glomerular Filt Rate 132 ml/min
[2025-04-26] MEDS: LACTATED RINGERS 500 ML 500 ML 1200 ML IV ×3 (14:41→20:09)
[2025-04-26 15:09] LABS: Protein Creatinine Ratio Urine 0.04 (0-0.19)
--- NOTE | 2025-04-26 16:53 | CRLHL7_ITS ---
For Patients: As a result of the Century Cures Act, medical imaging exams and procedure reports are released immediately into your electronic medical record. You may view this report before your referring provider. If you have questions, please contact your health care provider. INDICATION: Tachycardia. TECHNIQUE: Ultrasound OB pelvis transabdominal. Real-time espinoza-scale imaging of the fetus was performed without stress testing. COMPARISON: OB ultrasound 04/26/2025. FINDINGS: Sonographic imaging demonstrates a single living intrauterine gestation. Fetus demonstrates a variable cardiac rate ranging between 161-215 beats per minute. Fetus has a cephalic orientation. Amniotic fluid volume single deepest pocket 5.6 cm 2/2. motion 2/2. tone 2/2. breathing movements 2/2. IMPRESSION: Single live intrauterine with a biophysical profile 03/22. Variable heart rate ranging between 161- 215 beats per minute. Dictated by Jj Lewis MD @ 04/26/2025 6:23:40 PM (Electronically Signed)
--- NOTE | 2025-04-26 17:33 | P.OBHP_ITS ---
OB - H&P; HPI Antepartum History of Present Illness Date Seen: 04/26/25 Chief complaint: Maternity Narrative: Kaitlynn Donaldson is a 25 year old woman at 35 4/7 weeks' gestation who presents with chief complaint of decreased movement and new onset redness of her right leg. She has not felt movement today. In addition, she notes a new onset of redness in her lower leg. She has had an episode like this before, which happened just prior to the delivery of her last via repeat . I assisted in the surgery, which was done in the setting of severe preeclampsia superimposed on chronic hypertension. Review of previous ER notes regarding the cellulitis that she had notes treatment with antibiotics, but she does not recall this. She reports temperature of 100.4 this morning at 11:00 a.m., but this spontaneously resolved. She is feeling generally unwell. She is taking labetalol 100 mg b.i.d. and reports normal blood pressures. Specific Issues/Plans Partner: Brando? H&P:? []? BPP/NST form filled out in referrals # Gestational diabetes, currently diet-controlled - Assistant Teacher Primary visit arranged - Serial growth US # CHTN - started labetolol 100mg BID on 04/16 [ ] twice weekly ANT [ ] weekly preE labs - 37w0d - 39w6d delivery per ACOG for cHTN on meds, scheduled at 38 #Elevated AST-55 with NOB labs > normalized on 12/03 * [x] level 2 US and MFM consult * [x] 24hr urine normal * Serial growth US as below, testing for obesity * Delivery at 38-39 weeks per MFM #? Hx of Severe Preeclampsia baseline labs ordered with NOB - as above recommended Baby ASA at 12 weeks # Hx of two prior C/S. Prefers repeat with bilateral salpingectomy 05/13 = 38 0/7 weeks Scheduling form submitted 04/01 #Undesired fertility [x] sign federal consent for sterilization at viability - completed 02/18 # Anemia * On oral iron QOD * Hemoglobin 9.9 04/22/2025. Ferritin 5.8 on 04/16/2025 * Refer for iron infusion therapy enter 04/22/25 #Morbid obesity - BMI 48.7 at new Ob #Excess weight gain in - 17lbs at 23 weeks (11-20 total recommended) ? Referral to hvac project engineer- declined ?Referral to anesthesia? Weekly testing starting at 34 weeks? Serial growth US starting at 28 weeks ? #? Anxiety/Depression/ADD discontinued all medications with positive test previously on Adderall XR 20mg, Bupropion XR 150mg and Venlafaxine 75mg? Imaging:??? - Level 2 US: EFW 385g at 26%ile, AC 45%ile. Bilateral choroid plexus cysts, otherwise visualized anatomy is within normal limits. Suboptimal views of kidneys, aortic arch, 3 vessel view. Cx 3.9cm. Posterior placenta, no previa. MVP 4.7cm. Repeat US in 3-4 weeks with MFM. - 02/18: Remaining anatomy is within normal limits, choroid plexus cysts resolved. EFW 783g at 36%ile, AC 65%ile. - 02/20: [place] at 25w2d gestational age. The remaining anatomic survey was completed, no anomalies commonly detected. Previously noted choroid plexus cysts have resolved. Growth parameters and estimated weight were consistent with gestational age predicted by assigned KALI.The amniotic fluid volume appeared normal. - 03/04: EFW 1146g at 34%ile - BPD 7%, HC <3%, FL 57%, AC 36%. MVP 4.8cm. - 04/01/25: EFW 53%, AC 77%, cephalic, SDP 4.6 cm Vaccinations:?? COVID:declined? Flu: declines Tdap: 03/18/25 RSV: []?OFFER at visit on 04/30/2025 32 week mental health: 04/01/25; PHQ = 2, DALJIT = 3 Last pap:? [Only high-risk abnormal pap results in problem list]? Meds Home Medications and Allergies Home Medications ?Medication ?Instructions ?Recorded ?Confirmed ?Type bupropion HCl 150 mg 24 hr tablet, 150 mg PO DAILY 04/26/25 History extended release Held on 12/03/24. Instructions: dextroamphetamine-amphetamine ER PO 08/27/24 04/25/25 History 20 mg 24hr capsule,extend release (Adderall XR) Held on 12/03/24. Instructions: venlafaxine 75 mg capsule,extended 225 mg PO DAILY 04/26/25 History release 24 hr Held on 12/03/24. Instructions: aspirin 81 mg chewable tablet 81 mg PO QDAY 12/03/24 0 04/26/25 History docosahexaenoic acid 200 mg mg PO DAILY 12/03/2404/25 History capsule ( DHA) ferrous sulfate 325 mg (65 mg 325 mg PO QMWF #30 tabs 03/04/25 04/26/25 Rx iron) tablet blood sugar diagnostic (Blood #100 ea 03/11/25 5 Rx Glucose Test strips) blood-glucose meter #1 ea 03/11/25 04/26/25 Rx lancets (Accu-Chek Softclix #100 ea 03/11/25 04/26/25 Rx Lancets) labetalol 100 mg tablet 100 mg PO BID #60 tabs 04/1604/26/25 Rx amoxicillin 875 mg tablet 875 mg PO BID 7 days #14 tab s 04/26/25 Rx Allergies Allergy/AdvReac Type Severity Reaction Status Date / Time acetaminophen (From Vicodin) AdvReac Intermediate Headache Verified 04/26/25 13:15 hydrocodone (From Vicodin) AdvReac Intermediate Headache Verified 04/26/25 13:15 OB - H&P: Exam Physical Exam: Vital signs: Temp Pulse Resp BP Pulse Ox 99 F 111 H 16 130/60 100 04/26/25 16:45 04/26/25 17:25 04/26/25 17:06 04/26/25 17:25 04/26/25 17:30 HR is consistently elevated. Respirations are primarily in normal range but RN also reported a period of RR in 30s. Narrative: Physical exam: General: No acute distress upon initial evaluation, lying in bed. Upon repeat evaluation, she is to bring and under blanket. Psych: Alert and oriented x3, full affect HEENT: Normocephalic, atraumatic Heart: Regular rate and rhythm, no murmur rub or gallop Lungs: Clear to auscultation bilaterally Abdomen: Gravid, uncomfortable to touch to lower abdomen, pannus hangs over lower uterine segment Lower extremities: Bright red and warm patch of edematous skin noted in right lower extremity just above the ankle, primarily anterior but reaching laterally on either side, with crisp borders. Both lower extremities exhibit 2 to 3+ edema. tracing: Over extended monitoring, baseline is varied from 155-170. Accelerations have been present. There are no decelerations. Variability is primarily moderate, but minimal variability is noted at times as well. OB - Results Labs Labs: Short CBC 04/26/25 Range/Units 14:15 WBC 15.92 H (4.50-11.00) K/uL Hgb 10.3 L (12.0-16.0) gm/dL Hct 31.9 L (33.0-51.0) % Plt Count 182 (140-440) K/uL BMP 04/26/25 14:15 BUN 8 Creatinine 0.5 Liver Function 04/26/25 Range/Units 14:15 AST 34 (12-35) U/L ALT 17 (4-35) U/L Urine 04/26/25 Range/Units 14:10 Urine Color Dark yellow (Yellow) Urine Appearance Slightly Cloudy A (Clear) Urine pH 7.0 (5.0-8.5) Ur Specific Golden 1.025 (1.000-1.030) Urine Protein 1+ A (Negative) Urine Glucose (UA) Negative (Negative) INR normal at 0.98 PTT normal at 24 Bilirubins normal Lactate normal at 1.6 MRSA swab nares and blood cultures pending Imaging OB US: Radiologist's impression: Ultrasound: Cephalic, SDP 5.6 cm, BPP 8/8 other: Radiologist's impression: Lower extremity Doppler is negative for DVT in the right lower extremity OB - A/P Antepartum Assessment and Plan (1) Cellulitis: Status: Acute Assessment and Plan: With evidence of systemic inflammatory response: chills, WBC 15, maternal and tachycardia, intermittent tachypnea (2) Previous delivery affecting : Status: Acute (3) Chronic hypertension affecting : Problem details: Status: Acute Plan Cellulitis with signs systemic inflammatory response. Admit for observation. Vancomycin IV for treatment of cellulitis with coverage for MRSA. Continuous monitoring. Cultures of nares for MRSA and blood prior to initiation of vancomycin.
[2025-04-26] MEDS: ACETAMINOPHEN 500 MG TABLET 1000 MG PO (18:11)
[2025-04-26 18:13] LABS: Lactate* 1.6 mmol/L (0.5-1.9)
[2025-04-26 18:28] LABS: Albumin* 3.7 g/dL (3.3-5.0)
[2025-04-26 18:31] LABS: Alanine Aminotransferase* 17 U/L (4-35); Alkaline Phosphatase* 200 U/L (40-150); Aspartate Amino Transferase* 34 U/L (12-35); Bilirubin Direct* 0.2 mg/dL (0.0-0.5); Bilirubin Total* 0.5 mg/dL (0.1-1.5); INR 0.98 (0.91-1.10); Prothrombin Time 13.8 Seconds; Total Protein* 7.5 g/dL (6.0-8.3)
[2025-04-26] MEDS: VANCOMYCIN 2 GM/400 ML 2 GM/400 ML PIGGYBACK IVPB (18:36)
[2025-04-26] MEDS: LABETALOL HCL 100 MG TABLET PO (21:00)
--- NOTE | 2025-04-26 23:34 | PM.OBPNL ---
Subjective Date Seen: 04/26/25 Narrative: Kaitlynn was admitted under diagnosis of cellulitis of RLE and started on vancomycin. I was informed that she was complaining of contractions that have become painful. At time of reassessment, she reported abdominal pain that is diffuse and has bothered her since this afternoon. Objective Exam: Gen - Lying in bed, tachypneic but does not appear dyspneic Heart - tachy but regular rhythym, no M/R/G Lungs - CTAB Abd - Diffusely tender to palpation, both of uterus and around uterus. Cervical exam - 1 70 / high / cephalic. Cervical exam reproduces pain in uterus Lower extremity - RLE with continuing erythematous patch; 3-4+ edema bilaterally Vital Signs: Last Vital Signs Temp 100 F H 04/26/25 22:37 Pulse 125 H 04/26/25 23:09 Resp 32 H 04/26/25 22:37 BP 112/56 L 04/26/25 23:09 Pulse Ox 100 04/26/25 23:31 She has remained tachycardic throughout her time here, and has been intermittently tachypneic. Her temperature continues to be elevated. She has maintained normal O2 saturations and normal to mildly elevated BP. Comments: tracing: In last 30 minutes, baseline 165 / accelerations present to 220s / intermittent brief variable decelerations / moderate variability Intermittent contractions noted, irregular Assessment Status: Category ll Tracing Comments: Category 2 Maternal Status: Overall clinical picture is concerning for chorioamnionitis. She has diffuse abdominal and uterine tenderness, reproduced on cervical exam. She is now having contractions. Though we have just administered one dose of vancomycin this evening, she has had no clinical improvement since administration. Otherwise, she clearly has evidence of systemic infection. Given the level of suspicion I have about this serious diagnosis, I have recommended tonight. The risks to the infant of late delivery are far exceeded by that of continuing in the setting of chorioamnionitis. It is also certain that she has cellulitis, but this alone cannot explain her uterine tenderness. Patient confirms her desire for bilateral salpingectomy as well. Thus, plan is for repeat with bilateral salpingectomy. We discussed risks of surgery, including bleeding, hemorrhage, need for transfusion, scarring, infection, thromboembolism, damage to internal organs, and risk of regret of sterilization. We discussed risks of prematurity of infant weighed against that of infection. We discussed the possibility of transfer of infant. Consent form was reviewed with and signed by patient. I will add gentamicin and clindamycin to antibiotic regimen. Plan Plan:
[2025-04-26] MEDS: CLINDAMYCIN 900 MG/50 ML-D5W 900 MG/50 ML PIGGYBACK 100 MG IVPB (23:49)
[2025-04-27] VITALS (29 sets, daily range): BP systolic 109–147; BP diastolic 55–84; PULSE 65–128; RESP 16–24; TEMP 36.3–36.9; O2SAT 95–100
[2025-04-27] MEDS: GENTAMICIN 400 MG in 0.9 % SODIUM CHLORIDE 100 ml 100 ML 110 MG IVPB (00:12)
--- NOTE | 2025-04-27 02:40 | P.OBPRC_ITS ---
Procedure Date of procedure: 04/27/25 Pre-op diagnosis: 35 weeks, 5 days gestation Suspected chorioamnionitis Undesired fertility Post-op diagnosis: same Procedure Done: Global Will [facility] bill your pro fee for this procedure?: Yes Blood Loss Measurement Type: QBL (441) Bakri Used: No IV fluids (mL): 1,000 Urine Output (mL): 100 Surgeon: Violetta Gallagher MD Coat Ironer Hand: Katia Baca MD Anesthesia Type: Spinal Findings: 1. Male , cephalic presentation, Apgars 7 & 8, weight 2885 g 2. Dense scarring and thickening of the fascia and peritoneum. Omental scarring to the anterior abdominal wall. Filmy adhesions of the bilateral tubes to ipsilateral ovaries. Scarring of bladder reflection. Otherwise normal appearance of uterus. Procedure Name: Repeat low transverse with bilateral salpingectomy Procedure Description: Patient was taken to the operating room with IV running. She received ge ntamicin and clindamycin in preoperative prophylaxis. Spinal anesthesia was administered. Broussard catheter was inserted. Her pannus was taped up with a TRAXI retractor. She was prepped and draped in the usual sterile fashion. Anesthesia was tested and found to be adequate. A low-transverse skin incision was made with a scalpel and carried through to the underlying layer of fascia with the scalpel. The subcutaneous fat was dissected off the underlying fascia with Bovie. The fascia was nicked in the midline with a scalpel, and this incision was extended laterally with scissors. The fascia was dissected off the underlying rectus muscles superiorly and inferiorly with Bovie. Rectus diastasis was noted. Peritoneum was identified and entered bluntly. Bovie was used to widen this opening laterally. Omental adhesions were encountered, attached to the low anterior abdominal wall. These were lysed with cautery. Ultimately, this allowed placement of the Hari O retractor. Hari O retractor was inserted and tightened down, providing excellent visualization of the lower uterine segment. The bladder reflection was found to be advanced along the lower uterine segment. A bladder flap was created with a combination of sharp and blunt dissection. Low-transverse uterine incision was made with a scalpel. Incision was widened bluntly. The infant's head was grasped through the hysterotomy and delivered with the help of fundal pressure. The remainder of the body delivered without incident. Cord was clamped and cut after 30 seconds. was handed off to attending nurses. The placenta was delivered manually after gentle traction on the cord failed to result in removal placenta. The uterus was exteriorized and cleaned of all clots and debris with the dry lap pad. The hysterotomy was reapproximated with 0 Vicryl in a running, locked fashion. Laparotomy pad was placed over the hysterotomy. The adnexa were examined and noted to be normal in appearance. The right fallopian tube was grasped with Spring clamps and elevated. Filmy adhesions to the ovary were lysed with the LigaSure exact device. The mesosalpinx was divided, initially moving laterally to the mid isthmic portion of the tube, where some distortion of mesosalpinx was noted. Then, the tube was divided at the cornua and dissection was carried medially to laterally, ultimately freeing the tube from the investing broad ligament. Hemostasis of the leaflets of the broad ligament were noted. This procedure was repeated on the patient's left side and hemostasis was achieved with monopolar cautery. The cul-de-sac was cleansed with dampened laparotomy sponge, removing any further clots and debris. The uterus was returned to the abdomen. The hysterotomy was reexamined and an imbricating layer of 0 Vicryl was used in attempt to obtain hemostasis. Numerous additional [id number] sutures and monopolar cautery were required to ultimately obtain hemostasis. The Hari O retractor was removed. The hysterotomy was reexamined and found to be hemostatic. The rectus muscles were meticulously examined and monopolar cautery used to obtain hemostasis. The fascia was reapproximated with 0 looped PDS in a running fashion. Subcutaneous fat was irrigated and Bovie used on oozing vessels. The subcutaneous fat was reapproximated with 2 0 plain gut suture in an interrupted fashion. The skin was closed with a subcuticular stitch of 4-0 Monocryl. Steri-Strips and silver dressing were applied above this. Patient tolerated procedure well was taken to recovery area in stable condition. Complications: None Pathology: specimen obtained, sent to pathology (1. Placenta 2. Bilateral fallopian tubes ) Surgery Debrief Performed: Yes Surgery Debrief Comment: Postoperative debrief was verbalized with OR staff, including a verification of pathology specimens to be sent as described above.
--- NOTE | 2025-04-27 02:43 | W.PM.NB ---
Nerve Block Nerve Block Time Seen by Provider: 02: Date Seen: 04/27/25 Type of block requested by surgeon for post-operative analgesia: TAP Side: bilateral Time out performed: Yes Verification of patient name: Yes Verification of date of : Yes Site marking: site marked Name of person performing procedure: mantyl Continuous monitoring Was continuous monitoring of O2 sat, B/P, alarm security or surveillance monitor, recorded every 15 minutes?: Yes Procedure Checklist: sterile prep and needles Ultrasound guided. Images saved: Yes Medications given in 5ml increments after negative aspiration: Marcaine %: 0.25 mL: 30 and Exparel mL: 10 Patient tolerated procedure well: Yes Block Charges Block Charge (with Pro Fee): TAP Bilateral Use of Ultrasound Machine for Block: Yes- US Guidance/pain block
--- NOTE | 2025-04-27 02:44 | P.ANES_ITS ---
Anesthesia Charges Start Date/Time Anesthesia Start Date: 04/27/25 Anesthesia Start Time: 00:19 Stop Date/Time Anesthesia Stop Date: 04/27/25 Anesthesia Stop Time: 02:40 Summary Emergency: SENIOR CONTRACT SPECIALIST Coding CPT Codes CPT Codes: ANESTH CS DELIVERY - 67761 ([id number]) P4 - PT W/SEV SYS DIS THREAT LIFE, QZ - SENIOR CONTRACT SPECIALIST SVC W/O ENTERPRISE RESOURCE PLANNING CONSULTANT BY Additional Codes: Summary - Emergency: SENIOR CONTRACT SPECIALIST ([id number])
--- NOTE | 2025-04-27 02:44 | W.ANESCHARGE ---
Anesthesia Charges Start Date/Time Anesthesia Start Date: 04/27/25 Anesthesia Start Time: 00:19 Stop Date/Time Anesthesia Stop Date: 04/27/25 Anesthesia Stop Time: 02:40 Summary Emergency: MONITORING AND EVALUATION ADVISOR Coding CPT Codes CPT Codes: ANESTH CS DELIVERY - 77215 ([id number]) P4 - PT W/SEV SYS DIS THREAT LIFE, QZ - MONITORING AND EVALUATION ADVISOR SVC W/O LINE BUILDER BY Additional Codes: Summary - Emergency: MONITORING AND EVALUATION ADVISOR ([id number])
[2025-04-27] MEDS: VANCOMYCIN 2 GM/400 ML 2 GM/400 ML PIGGYBACK IVPB ×3 (04:13→19:54)
[2025-04-27] MEDS: LACTATED RINGERS 1000 ML 1,000 ML 125 ML IV (04:18)
[2025-04-27] MEDS: LABETALOL HCL 100 MG TABLET 200 MG PO ×2 (07:00→20:54)
[2025-04-27] MEDS: ACETAMINOPHEN 500 MG TABLET 1000 MG PO ×2 (07:00→12:57)
[2025-04-27 08:03] LABS: Hematocrit 28.8 % (33.0-51.0); Hemoglobin* 9.3 gm/dL (12.0-16.0); Immature Granulocytes Pct Auto 0.8 %; Mean Corpuscular HGB Conc 32 gm/dL (32-36); Mean Corpuscular Hemoglobin 25 pg (26-34); Mean Corpuscular Volume 77 fL (80-100); RDW Coefficient of Variation % 14.1 % (11.5-15.5); Red Blood Count 3.72 m/uL (4.00-5.20); White Blood Count* 15.11 K/uL (4.50-11.00)
[2025-04-27] MEDS: CLINDAMYCIN 900 MG/50 ML-D5W 900 MG/50 ML PIGGYBACK 100 MG IVPB (08:05)
[2025-04-27 08:06] LABS: Lactate* 1.0 mmol/L (0.5-1.9)
[2025-04-27 08:08] LABS: Immature Granulocytes Abs Auto 0.10 K/uL (0.00-0.30); Lymphocytes Absolute Auto 0.70 K/uL (0.90-2.90); Slide Review Reflex No
[2025-04-27 08:28] LABS: Albumin* 2.8 g/dL (3.3-5.0)
[2025-04-27 08:31] LABS: Alanine Aminotransferase* 15 U/L (4-35); Alkaline Phosphatase* 149 U/L (40-150); Aspartate Amino Transferase* 34 U/L (12-35); Bilirubin Direct* 0.1 mg/dL (0.0-0.5); Bilirubin Total* 0.4 mg/dL (0.1-1.5); Blood Urea Nitrogen* 9 mg/dL (5-24); Creatinine* 0.5 mg/dL (0.5-1.5); Est. Creatinine Clearance* 121.40; Estimated Glomerular Filt Rate 132 ml/min; INR 1.17 (0.91-1.10); Prothrombin Time 15.8 Seconds; Total Protein* 6.0 g/dL (6.0-8.3)
--- NOTE | 2025-04-27 09:54 | P.OBPN_ITS ---
OB - PN:Subj Subjective Date Seen: 04/27/25 Interval history: Kaitlynn is a 25 yo G4 now P3 woman who is s/p repeat with bilateral salpingectomy on 04/27/25 at 35 5/7 weeks' gestation in the setting of suspected chorioamnionitis. Surgery was uncomplicated. Her infant son was transferred to [facility] with respiratory distress. She has been maintained on vancomycin since admission yesterday afternoon. At diagnosis of presumed chorioamnionitis, she was also started on gentamicin and clindamycin. Her fever broke during and she has remained afebrile since. She has chronic HTN and was maintained on labetalol 100 mg BID since 04/16. This dose was increased to 200 mg BID this AM. OB PROBLEM LIST Gestational diabetes, diet-controlled - # CHTN - started labetolol 100mg BID on 04/16 #Elevated AST-55 with NOB labs > normalized on 12/03 * #? Hx of Severe Preeclampsia # Hx of two prior C/S. Prefers repeat with bilateral salpingectomy 05/13 = 38 0/7 weeks #Undesired fertility [x] sign federal consent for sterilization at viability - completed 02/18 # Anemia * On oral iron QOD * Hemoglobin 9.9 04/22/2025. Ferritin 5.8 on 04/16/2025 * Refer for iron infusion therapy enter 04/22/25 #BMI 48 at new OB #Excess weight gain in ? #? Anxiety/Depression/ADD discontinued all medications with positive test previously on Adderall XR 20mg, Bupropion XR 150mg and Venlafaxine 75mg Narrative: This morning, she denies any pain. She has not yet had a meal, but is tolerating crackers. She denies any nausea. Broussard catheter is still in. She is not aware of any heavy bleeding. Her son was transferred to [facility] last night, and they are awaiting an update. OB - PN: Obj Exam Physical Exam: Vital signs: Temp Pulse Resp BP Pulse Ox O2 Del Method 98.3 F 95 16 132/67 98 Room Air 04/27/25 07:58 04/27/25 07:58 04/27/25 07:58 04/27/25 07:58 04/27/25 07:58 04/27/25 07:58 Last temp 100.4 at 2200 Narrative: General: Pleasant, no acute distress, lying and then Heart: Regular rate and rhythm, no murmur or gallop Lungs: Clear to auscultation bilaterally Abdomen: Normoactive bowel sounds. Soft, nontender, fundus well below umbilicus. Silver dressing clean, dry, and intact Lower extremities: SCDs are in place, when removed, the right lower extremity continues to exhibit a warm, pink patch beginning around the ankle. This has extended since admission yesterday, and extended slightly since initiation of vancomycin. In addition to this, there is a new patch of more or less identical appearance in her superior right anterior singh. Three to 4+ edema in bilateral lower extremities. OB - PN: Obj Data Labs Labs: Laboratory Results - last 24 hr 04/26/25 04/26/25 04/26/25 14:10 14:15 18:00 WBC 15.92 H RBC 4.09 Hgb 10.3 L Hct 31.9 L MCV 78 L MCH 25 L MCHC 32 RDW Coeff of Manohar Plt Count 182 Neut % (Auto) Lymph % (Auto) Motley % (Auto) Eos % (Auto) Baso % (Auto) Neut # (Auto) Lymph # (Auto) Motley # (Auto) Eos # (Auto) Baso # (Auto) Abs Immat Gran (auto) Imm/Tot Granulo (auto) INR 0.98 APTT 24 Cord ABG pH Cord ABG pCO2 Cord ABG HCO3 Cord ABG Base Excess Cord VBG pH Cord VBG pCO2 Cord VBG HCO3 Cord VBG Base Excess BUN 8 Creatinine 0.5 Estimated Creat Clear 121.40 Estimated GFR 132 Lactate 1.6 Total Bilirubin 0.5 Direct Bilirubin 0.2 AST 34 34 ALT 17 17 Alkaline Phosphatase 200 H Total Protein 7.5 Albumin 3.7 Urine Color Dark yellow Urine Appearance Slightly Cloudy A Urine pH 7.0 Ur Specific Dougherty 1.025 Urine Protein 1+ A Urine Glucose (UA) Negative Urine Ketones 1+ A Urine Blood Negative Urine Nitrite Negative Urine Bilirubin Negative Urine Urobilinogen 0.2 Ur Leukocyte Esterase Negative Urine RBC 0-2 Urine WBC 5-10 A Ur Squamous Epith Cells Moderate A Urine Bacteria Moderate A Urine Creatinine 138.6 Protein/Creatinin Ratio 0.04 Urine Total Protein < 5 Blood Type B Positive Antibody Screen NEGATIVE 04/27/25 04/27/25 01:45 07:56 WBC 15.11 H RBC 3.72 L Hgb 9.3 L Hct 28.8 L MCV 77 L MCH 25 L MCHC 32 RDW Coeff of Manohar 14.1 Plt Count 166 Neut % (Auto) 90.3 H Lymph % (Auto) 4.4 L Motley % (Auto) 4.4 Eos % (Auto) 0.0 Baso % (Auto) 0.1 Neut # (Auto) 13.60 H Lymph # (Auto) 0.70 L Motley # (Auto) 0.70 Eos # (Auto) 0.00 Baso # (Auto) 0.00 Abs Immat Gran (auto) 0.10 Imm/Tot Granulo (auto) 0.8 INR 1.17 H APTT 28 Cord ABG pH Cancelled Cord ABG pCO2 Cancelled Cord ABG HCO3 Cancelled Cord ABG Base Excess Cancelled Cord VBG pH Cancelled Cord VBG pCO2 Cancelled Cord VBG HCO3 Cancelled Cord VBG Base Excess Cancelled BUN 9 Creatinine 0.5 Estimated Creat Clear 121.40 Estimated GFR 132 Lactate 1.0 Total Bilirubin 0.4 Direct Bilirubin 0.1 AST 34 ALT 15 Alkaline Phosphatase 149 Total Protein 6.0 Albumin 2.8 L Urine Color Urine Appearance Urine pH Ur Specific Dougherty Urine Protein Urine Glucose (UA) Urine Ketones Urine Blood Urine Nitrite Urine Bilirubin Urine Urobilinogen Ur Leukocyte Esterase Urine RBC Urine WBC Ur Squamous Epith Cells Urine Bacteria Urine Creatinine Protein/Creatinin Ratio Urine Total Protein Blood Type Antibody Screen OB - PN: A/P Delivery Assessment and Plan (1) Cellulitis: Status: Acute Assessment and Plan: Cellulitis of right lower extremity. This has progressed despite treatment with vancomycin. This has occurred whilst her signs and symptoms of systemic infection have abated. I do not believe that this was the source of her original systemic inflammatory response. MRSA cultures pending, but vancomycin covers MRSA. I plan to consult the hospitalist service for management of this particular problem. (2) Chronic hypertension affecting : Problem details: Status: Acute Assessment and Plan: Normal to mildly elevated blood pressures. In response to a mild elevation this morning, I have increased her labetalol to 200 mg b.i.d.. HELLP labs are normal this morning. (3) GDM, class A1: Status: Acute Assessment and Plan: Plan for 2 hour glucose tolerance test prior to discharge. (4) S/P repeat low transverse : Problem details: with bilateral salpingectomy on 04/27/25 Status: Acute Assessment and Plan: This was her 3rd . At this time, she is stable and has had an acceptable postoperative course. Silver dressing is in place, and is to remain so for 7 days. Given her BMI, I have ordered Lovenox 40 mg q.12 hours for prophylaxis against thromboembolism. This being said, her INR is prolonged to 1.17 this morning, and I am uncertain why. I wonder if the use of Lovenox in the setting of a prolonged INR is concerning or contraindicated, and will speak to the hospitalist about this issue. (5) Anemia: Status: Acute Assessment and Plan: Continuing anemia, combination of iron deficiency anemia of and blood loss. Continue ferrous sulfate every other day. (6) Adult BMI 50.0-59.9 kg/sq m: Status: Acute Assessment and Plan: As above (7) Chorioamnionitis: Status: Acute Assessment and Plan: This continues to be my working diagnosis, but amniotic fluid cultures, placental pathology, and blood cultures are still pending. She no longer has signs of systemic inflammatory response. I will discuss the ideal antibiotic regimen with hospitalist service. (8) Prolonged INR: Status: Acute Assessment and Plan: Uncertain etiology. Platelets and liver functions have been normal; this does not appear to be related to DIC. Discussed with hospitalist service. Plan Addendum: I had a brief discussion with Dr. Shayla Schmidt in the hospitalist service. Someone for her team will see Kaitlynn this afternoon. In the interim, she recommended: Continuation of vancomycin Discontinuation of gentamicin and clindamycin Initiation of Zosyn Elevation of right leg Daily CBC, CMP, INR Plan day: 0
[2025-04-27] MEDS: DOCUSATE SODIUM 100 MG CAPSULE PO (09:57)
[2025-04-27] MEDS: VENLAFAXINE ER 75 MG CAPSULE 225 MG PO (09:58)
[2025-04-27] MEDS: PIPERACILLIN/TAZOBACTAM 3.375 GM in 0.9 % SODIUM CHLORIDE Mini-bag 100 ML IVPB ×3 (12:04→23:44)
[2025-04-27] MEDS: FERROUS SULFATE 325 MG TABLET PO (12:05)
[2025-04-27] MEDS: ENOXAPARIN 40 MG/0.4 ML INJ SUBCUT (14:05)
--- NOTE | 2025-04-27 15:02 | PM.IMCN1 ---
Date of Consult Consult date: 04/27/25 Primary Care Provider: Not a Local Provider Consult Narrative Narrative: Kaitlynn Donaldson is a 25 year old female with past medical history of obesity, asthma, chronic hypertension, GDM who is status post today in the morning around 2:30 a.m. hospitalist team was consulted regarding a right lower extremity infection, likely cellulitis. Patient states that it started yesterday and it was more painful before starting IV antibiotics, but currently she says that it is not painful anymore but it still red. Patient states last year she had a similar infection just before delivery. She does not know what was the microbiology at that time. Patient states that she had fevers yesterday but afebrile today. Patient denies history of allergy to antibiotics. Denies history of DVT/PE. Examination of the right lower extremity showed 2 areas of erythema and warmth: 1st one is about ~15 cm (in the longest diameter) just below the knee area and the 2nd one ~20 cm (in the longest diameter) of the skin of the distal tibia area. Borders lined. Review of Systems Status of ROS: Reports: 6 or more systems reviewed and unremarkable except as noted in History and below PFSH [facility] Medical History (Updated 04/27/25 @ 15:44 by Debra Cobian MD) Cellulitis ?L03.90 - Cellulitis, unspecified (ICD-10) Anemia complicating ?O99.019 - Anemia complicating , unspecified trimester (ICD-10) Severe pre-eclampsia, complicating the puerperium ?O14.15 - Severe pre-eclampsia, complicating the puerperium (ICD-10) Miscarriage ?O03.9 - Complete or unspecified spontaneous without complication (ICD-10) Surgical History (Updated 04/27/25 @ 10:44 by Violetta Glalagher MD) H/O sinus surgery ?Z98.890 - Other specified postprocedural states (ICD-10) Previous delivery affecting ?O34.219 - Maternal care for unspecified type scar from previous delivery (ICD-10) History of tonsillectomy and adenoidectomy ?Z90.89 - Acquired absence of other organs (ICD-10) History of appendectomy ?Z90.49 - Acquired absence of other specified parts of digestive tract (ICD-10) History of ?Z98.891 - History of uterine scar from previous surgery (ICD-10) Social History Narrative: SOCIAL HISTORY: 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 Marital status: Significant other. Latter-Day/cultural needs: no. Chemical or radiation exposure: no. Pre- tobacco use: no. Pre- alcohol use: no. Current tobacco use: no. Current alcohol use: no. Recreational drug use: History of marijuana use, stopped with positive UPT previous . Denies use this . Dietary restrictions: no. Blood transfusion acceptable in an emergency: yes. PSYCHOSOCIAL HISTORY: History of depression or currently depressed: yes. 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 Problems that will make it hard to make it to appointments: no. What is your current living situation?: I presently have a place to live Problems where you live: no known problems In the past 12 months, utilities in danger of being shut off: no In past 12 months, lack of transportation kept you from medical appts, meetings, work, or getting things needed for daily living: no In the past 12 mos, have been you worried that your food would run out before you had money to buy more?: never true In the past 12 mos, the food you bought just didn't last and you didn't have money to buy more?: never true Smoking Status: Former smoker How often does anyone, including family, friends and others, physically hurt you: never How often does anyone, including family, friends and others, insult or talk down to you: never How often does anyone, including family, friends and others, threaten you with harm: never How often does anyone, including family, friends and others, scream or curse at you: never Meds Home Medications and Allergies Home Medications ?Medication ?Instructions ?Recorded ?Confirmed ?Type bupropion HCl 150 mg 24 hr tablet, 150 mg PO DAILY 08/27/24 04/26/25 History extended release Held on 12/03/24. Instructions: dextroamphetamine-amphetamine ER PO 08/27/24 04/25/25 History 20 mg 24hr capsule,extend release (Adderall XR) Held on 12/03/24. Instructions: venlafaxine 75 mg capsule,extended 225 mg PO DAILY 08/27/24 04/26/25 History release 24 hr Held on 12/03/24. Instructions: aspirin 81 mg chewable tablet 81 mg PO QDAY 12/03/24 04/26/25 History docosahexaenoic acid 200 mg mg PO DAILY 12/03/24 04/25/25 History capsule ( DHA) ferrous sulfate 325 mg (65 mg 325 mg PO QMWF #30 tabs 03/04/25 04/26/25 Rx iron) tablet blood sugar diagnostic (Blood #100 ea 03/11/25 04/26/25 Rx Glucose Test strips) blood-glucose meter #1 ea 03/11/25 04/26/25 Rx lancets (Accu-Chek Softclix #100 ea 03/11/25 04/26/25 Rx Lancets) labetalol 100 mg tablet 100 mg PO BID #60 tabs 04/16/25 04/26/25 Rx amoxicillin 875 mg tablet 875 mg PO BID 7 days #14 tabs 04/26/25 Rx Allergies Allergy/AdvReac Type Severity Reaction Status Date / Time acetaminophen (From Vicodin) AdvReac Intermediate Headache Verified 04/26/25 13:15 hydrocodone (From Vicodin) AdvReac Intermediate Headache Verified 04/26/25 13:15 Exam Narrative: Exam Narrative: Physical exam GENERAL: Comfortable, no acute distress. HEAD AND NECK: Atraumatic, normocephalic CARDIOVASCULAR: RRR. Normal S1, S2. No murmurs. RESPIRATORY: Clear to auscultation B/L. Good air entry B/L. No wheezes or rhonchi. NEUROLOGY: Alert, awake, oriented X 3. Normal speech. MSK: Examination of the right lower extremity showed 2 areas of erythema and warmth: 1st one is about ~15 cm (in the longest diameter) just below the knee area and the 2nd one ~20 cm (in the longest diameter) of the skin of the distal tibia area. Borders lined. PSYCH: Normal mood, normal affect. Const: Vital Signs, click to edit/add: Vital Signs - 24 hr 04/26/25 15:06 04/26/25 15:11 04/26/25 15:13 Temperature Pulse Rate Pulse Rate [Pulse Oximeter] Respiratory Rate Blood Pressure 124/58 L Blood Pressure [Ri ght Arm] Pulse Oximetry 100 100 Oxygen Delivery Nd thod 04/26/25 15:13 04/26/25 15:13 04/26/25 15:13 Temperature 99.3 F Pulse Rate 104 H Pulse Rate [Pulse Oximeter] Respiratory Rate 20 Blood Pressure Blood Pressure [Ri ght Arm] Pulse Oximetry Oxygen Delivery Nd thod 04/26/25 15:16 04/26/25 15:21 04/26/25 15:26 Temperature Pulse Rate Pulse Rate [Pulse Oximeter] Respiratory Rate Blood Pressure Blood Pressure [Ri ght Arm] P[facility]xim[facility] 100 [facility] 04/[facility] 15:31 04/26/25 15:36 04/26/25 15:41 Temperature Pulse Rate Pulse Rate [Pulse Oximeter] Respiratory Rate Blood Pressure Blood Pressure [Ri ght Arm] Pulse Oximetry 100 100 [facility] 04/26/25 15:46 04/26/25 15:51 04/26/25 15:56 Temperature Pulse Rate Pulse Rate [Pulse Oximeter] Respiratory Rate Blood Pressure Blood Pressure [Ri ght Arm] Pulse Oximetry 100 100 [facility] 04/26/25 16:01 04/26/25 16:06 04/26/25 16:45 Temperature 99 F Pulse Rate Pulse Rate [Pulse Oximeter] Respiratory Rate Blood Pressure Blood Pressure [Ri ght Arm] Pulse Oximetry 100 100 [facility] 04/26/25 16:55 04/26/25 17:00 04/26/25 17:00 Temperature Pulse Rate Pulse Rate [Pulse Oximeter] Respiratory Rate 30 H Blood Pressure Blood Pressure [Ri ght Arm] Pulse Oximetry 100 100 [facility] 04/26/25 17:05 04/26/25 17:06 04/26/25 17:06 Temperature Pulse Rate 113 H Pulse Rate [Pulse Oximeter] Respiratory Rate Blood Pressure 138/65 Blood Pressure [Ri ght Arm] Pulse Oximetry 100 [facility] 04/26/25 17:06 04/26/25 17:10 04/26/25 17:15 Temperature Pulse Rate Pulse Rate [Pulse Oximeter] Respiratory Rate 16 Blood Pressure Blood Pressure [Ri ght Arm] Pulse Oximetry 100 100 [facility] 04/26/25 17:20 04/26/25 17:25 04/26/25 17:25 Temperature Pulse Rate Pulse Rate [Pulse Oximeter] Respiratory Rate Blood Pressure 130/60 Blood Pressure [Ri ght Arm] Pulse Oximetry 100 100 Oxygen Delivery Nd thod 04/26/25 17:25 04/26/25 17:30 04/26/25 17:35 Temperature Pulse Rate 111 H Pulse Rate [Pulse Oximeter] Respiratory Rate Blood Pressure Blood Pressure [Ri ght Arm] Pulse Oximetry 100 100 Oxygen Delivery Nd thod 04/26/25 17:39 04/26/25 17:39 04/26/25 17:40 Temperature Pulse Rate 110 H Pulse Rate [Pulse Oximeter] Respiratory Rate Blood Pressure 144/65 H Blood Pressure [Ri ght Arm] Pulse Oximetry 100 [facility] 04/26/25 17:45 04/26/25 17:50 04/26/25 17:55 Temperature Pulse Rate Pulse Rate [Pulse Oximeter] Respiratory Rate Blood Pressure Blood Pressure [Ri ght Arm] Pulse Oximetry 100 100 [facility] 04/26/25 18:11 04/26/25 18:33 04/26/25 18:34 Temperature 100.1 F H Pulse Rate Pulse Rate [Pulse Oximeter] Respiratory Rate Blood Pressure 113/53 L Blood Pressure [Ri ght Arm] Pulse Oximetry 100 [facility] 04/26/25 18:34 04/26/25 18:38 04/26/25 18:43 Temperature Pulse Rate 122 H Pulse Rate [Pulse Oximeter] Respiratory Rate Blood Pressure Blood Pressure [Ri ght Arm] Pulse Oximetry 100 100 [facility] 04/26/25 18:48 04/26/25 18:49 04/26/25 18:49 Temperature Pulse Rate 127 H Pulse Rate [Pulse Oximeter] Respiratory Rate Blood Pressure 112/55 L Blood Pressure [Ri ght Arm] Pulse Oximetry 99 [facility] 04/26/25 18:53 04/26/25 18:58 04/26/25 19:03 Temperature Pulse Rate Pulse Rate [Pulse Oximeter] Respiratory Rate Blood Pressure Blood Pressure [Ri ght Arm] Pulse Oximetry 99 98 99 [facility] 04/26/25 19:04 04/26/25 19:04 04/26/25 19:08 Temperature Pulse Rate 116 H Pulse Rate [Pulse Oximeter] Respiratory Rate Blood Pressure 117/54 L Blood Pressure [Ri ght Arm] Pulse Oximetry 98 Oxygen Delivery Me thod 04/26/25 19:13 04/26/25 19:18 04/26/25 19:19 Temperature Pulse Rate Pulse Rate [Pulse Oximeter] Respiratory Rate Blood Pressure 118/56 L Blood Pressure [Ri ght Arm] Pulse Oximetry 98 98 Oxygen Delivery Me thod 04/26/25 19:19 04/26/25 19:23 04/26/25 19:27 Temperature 99.2 F Pulse Rate 125 H Pulse Rate [Pulse Oximeter] Respiratory Rate Blood Pressure Blood Pressure [Ri ght Arm] Pulse Oximetry 99 Oxygen Delivery Me thod 04/26/25 19:27 04/26/25 19:29 04/26/25 19:34 Temperature Pulse Rate Pulse Rate [Pulse Oximeter] Respiratory Rate 26 H Blood Pressure 126/58 L Blood Pressure [Ri ght Arm] Pulse Oximetry 99 Oxygen Delivery Me thod 04/26/25 19:34 04/26/25 19:34 04/26/25 19:39 Temperature Pulse Rate 125 H Pulse Rate [Pulse Oximeter] Respiratory Rate Blood Pressure Blood Pressure [Ri ght Arm] Pulse Oximetry 99 99 Oxygen Delivery Me thod 04/26/25 19:44 04/26/25 19:49 04/26/25 19:50 Temperature Pulse Rate Pulse Rate [Pulse Oximeter] Respiratory Rate Blood Pressure 121/55 L Blood Pressure [Ri ght Arm] Pulse Oximetry 100 100 Oxygen Delivery Me thod 04/26/25 19:50 04/26/25 19:54 04/26/25 19:59 Temperature Pulse Rate 125 H Pulse Rate [Pulse Oximeter] Respiratory Rate Blood Pressure Blood Pressure [Ri ght Arm] Pulse Oximetry 100 100 Oxygen Delivery Me thod 04/26/25 20:00 04/26/25 20:04 04/26/25 20:04 Temperature 98.2 F Pulse Rate 122 H Pulse Rate [Pulse Oximeter] Respiratory Rate Blood Pressure 111/53 L Blood Pressure [Ri ght Arm] Pulse Oximetry Oxygen Delivery Me thod 04/26/25 20:04 04/26/25 20:09 04/26/25 20:18 Temperature Pulse Rate Pulse Rate [Pulse Oximeter] Respiratory Rate Blood Pressure Blood Pressure [Ri ght Arm] Pulse Oximetry 100 100 100 Oxygen Delivery Me thod 04/26/25 20:23 04/26/25 20:28 04/26/25 20:33 Temperature Pulse Rate Pulse Rate [Pulse Oximeter] Respiratory Rate Blood Pressure Blood Pressure [Ri ght Arm] Pulse Oximetry 100 100 [facility] 04/26/25 20:38 04/26/25 20:38 04/26/25 20:38 Temperature Pulse Rate 113 H Pulse Rate [Pulse Oximeter] Respiratory Rate Blood Pressure 106/52 L Blood Pressure [Ri ght Arm] Pulse Oximetry 100 [facility] 04/26/25 20:38 04/26/25 20:38 04/26/25 20:43 Temperature 98.5 F Pulse Rate Pulse Rate [Pulse Oximeter] Respiratory Rate 32 H Blood Pressure Blood Pressure [Ri ght Arm] Pulse Oximetry 99 [facility] 04/26/25 20:48 04/26/25 20:48 04/26/25 21:00 Temperature Pulse Rate Pulse Rate [Pulse Oximeter] Respiratory Rate Blood Pressure 135/88 Blood Pressure [Ri ght Arm] Pulse Oximetry 91 92 [facility] 04/26/25 21:00 04/26/25 21:00 04/26/25 21:00 Temperature 98.6 F Pulse Rate 122 H Pulse Rate [Pulse Oximeter] Respiratory Rate 24 Blood Pressure Blood Pressure [Ri ght Arm] Pulse Oximetry [facility] 04/26/25 21:07 04/26/25 21:09 04/26/25 21:09 Temperature Pulse Rate 111 H Pulse Rate [Pulse Oximeter] Respiratory Rate Blood Pressure 150/72 H Blood Pressure [Ri ght Arm] Pulse Oximetry 100 [facility] 04/26/25 21:12 04/26/25 21:13 04/26/25 21:13 Temperature Pulse Rate 108 H Pulse Rate [Pulse Oximeter] Respiratory Rate Blood Pressure 130/61 Blood Pressure [Ri ght Arm] Pulse Oximetry 100 [facility] 04/26/25 21:15 04/26/25 21:18 04/26/25 21:22 Temperature Pulse Rate Pulse Rate [Pulse Oximeter] Respiratory Rate Blood Pressure Blood Pressure [Ri ght Arm] Pulse Oximetry 91 85 L 91 [facility] 04/26/25 21:23 04/26/25 21:23 04/26/25 21:23 Temperature Pulse Rate 113 H Pulse Rate [Pulse Oximeter] Respiratory Rate Blood Pressure 103/56 L Blood Pressure [Ri ght Arm] Pulse Oximetry 100 Oxygen Delivery Me thod 04/26/25 21:28 04/26/25 21:33 04/26/25 21:33 Temperature Pulse Rate 111 H Pulse Rate [Pulse Oximeter] Respiratory Rate Blood Pressure 115/54 L Blood Pressure [Ri ght Arm] Pulse Oximetry 100 Oxygen Delivery Me thod 04/26/25 21:33 04/26/25 21:33 04/26/25 21:33 Temperature 98.2 F Pulse Rate Pulse Rate [Pulse Oximeter] Respiratory Rate 20 Blood Pressure Blood Pressure [Ri ght Arm] Pulse Oximetry 100 Oxygen Delivery Me thod 04/26/25 21:38 04/26/25 21:43 04/26/25 21:48 Temperature Pulse Rate Pulse Rate [Pulse Oximeter] Respiratory Rate Blood Pressure Blood Pressure [Ri ght Arm] Pulse Oximetry 99 97 99 Oxygen Delivery Me thod 04/26/25 21:53 04/26/25 21:58 04/26/25 22:00 Temperature Pulse Rate Pulse Rate [Pulse Oximeter] Respiratory Rate Blood Pressure Blood Pressure [Ri ght Arm] Pulse Oximetry 99 100 87 L Oxygen Delivery Me thod 04/26/25 22:00 04/26/25 22:00 04/26/25 22:03 Temperature 100.4 F H Pulse Rate Pulse Rate [Pulse Oximeter] Respiratory Rate 24 Blood Pressure Blood Pressure [Ri ght Arm] Pulse Oximetry 96 Oxygen Delivery Me thod 04/26/25 22:07 04/26/25 22:08 04/26/25 22:08 Temperature Pulse Rate 112 H Pulse Rate [Pulse Oximeter] Respiratory Rate Blood Pressure 118/55 L Blood Pressure [Ri ght Arm] Pulse Oximetry 91 Oxygen Delivery Me thod 04/26/25 22:08 04/26/25 22:13 04/26/25 22:18 Temperature Pulse Rate Pulse Rate [Pulse Oximeter] Respiratory Rate Blood Pressure Blood Pressure [Ri ght Arm] Pulse Oximetry 93 99 92 Oxygen Delivery Me thod 04/26/25 22:18 04/26/25 22:23 04/26/25 22:26 Temperature Pulse Rate Pulse Rate [Pulse Oximeter] Respiratory Rate Blood Pressure Blood Pressure [Ri ght Arm] Pulse Oximetry 92 100 94 Oxygen Delivery Me thod 04/26/25 22:37 04/26/25 22:37 04/26/25 22:37 Temperature 100 F H Pulse Rate Pulse Rate [Pulse Oximeter] Respiratory Rate 32 H Blood Pressure Blood Pressure [Ri ght Arm] Pulse Oximetry 100 [facility] 04/26/25 22:38 04/26/25 22:38 04/26/25 22:50 Temperature Pulse Rate 117 H Pulse Rate [Pulse Oximeter] Respiratory Rate Blood Pressure 140/71 H Blood Pressure [Ri ght Arm] Pulse Oximetry 97 [facility] 04/26/25 22:52 04/26/25 23:01 04/26/25 23:06 Temperature Pulse Rate Pulse Rate [Pulse Oximeter] Respiratory Rate Blood Pressure Blood Pressure [Ri ght Arm] Pulse Oximetry 93 100 [facility] 04/26/25 23:09 04/26/25 23:09 04/26/25 23:11 Temperature Pulse Rate 125 H Pulse Rate [Pulse Oximeter] Respiratory Rate Blood Pressure 112/56 L Blood Pressure [Ri ght Arm] Pulse Oximetry 100 [facility] 04/26/25 23:16 04/26/25 23:21 04/26/25 23:26 Temperature Pulse Rate Pulse Rate [Pulse Oximeter] Respiratory Rate Blood Pressure Blood Pressure [Ri ght Arm] Pulse Oximetry 100 100 [facility] 04/26/25 23:31 04/26/25 23:36 04/26/25 23:39 Temperature Pulse Rate Pulse Rate [Pulse Oximeter] Respiratory Rate Blood Pressure 136/55 L Blood Pressure [Ri ght Arm] Pulse Oximetry 100 98 [facility] 04/26/25 23:39 04/26/25 23:39 04/26/25 23:39 Temperature 99.7 F H Pulse Rate 127 H Pulse Rate [Pulse Oximeter] Respiratory Rate 30 H Blood Pressure Blood Pressure [Ri ght Arm] Pulse Oximetry [facility] 04/26/25 23:51 04/26/25 23:56 04/27/25 00:01 Temperature Pulse Rate Pulse Rate [Pulse Oximeter] Respiratory Rate Blood Pressure Blood Pressure [Ri ght Arm] Pulse Oximetry 100 100 [facility] 04/27/25 00:06 04/27/25 00:07 04/27/25 00:08 Temperature Pulse Rate 127 H 126 H Pulse Rate [Pulse Oximeter] Respiratory Rate Blood Pressure 122/59 L 119/55 L Blood Pressure [Ri ght Arm] Pulse Oximetry 100 Oxygen Delivery Me thod 04/27/25 00:11 04/27/25 00:12 04/27/25 02:35 Temperature Pulse Rate 106 H Pulse Rate [Pulse Oximeter] Respiratory Rate 20 Blood Pressure 118/65 Blood Pressure [Ri ght Arm] Pulse Oximetry 100 100 96 Oxygen Delivery Me thod Room Air 04/27/25 02:40 04/27/25 02:45 04/27/25 02:50 Temperature 98.5 F Pulse Rate 111 H 111 H 110 H Pulse Rate [Pulse Oximeter] Respiratory Rate 20 20 20 Blood Pressure 135/72 123/69 124/68 Blood Pressure [Ri ght Arm] Pulse Oximetry 96 97 96 Oxygen Delivery Me thod Room Air Room Air 04/27/25 02:54 04/27/25 02:59 04/27/25 03:00 Temperature Pulse Rate 112 H 111 H Pulse Rate [Pulse Oximeter] Respiratory Rate 20 20 20 Blood Pressure 125/70 125/68 138/67 Blood Pressure [Ri ght Arm] Pulse Oximetry 95 98 98 Oxygen Delivery Me thod 04/27/25 03:19 04/27/25 03:34 04/27/25 04:09 Temperature Pulse Rate Pulse Rate [Pulse Oximeter] 104 H 99 Respiratory Rate 16 16 Blood Pressure Blood Pressure [Ri ght Arm] 123/70 127/74 125/72 Pulse Oximetry 98 99 Oxygen Delivery Me thod 04/27/25 04:18 04/27/25 04:38 04/27/25 04:52 Temperature Pulse Rate Pulse Rate [Pulse Oximeter] 95 93 97 Respiratory Rate 16 24 24 Blood Pressure Blood Pressure [Ri ght Arm] 138/81 130/79 125/84 Pulse Oximetry 98 97 97 Oxygen Delivery Me thod 04/27/25 05:06 04/27/25 06:24 04/27/25 07:58 Temperature 98.4 F 98.2 F 98.3 F Pulse Rate Pulse Rate [Pulse Oximeter] 100 100 95 Respiratory Rate 24 18 16 Blood Pressure Blood Pressure [Ri ght Arm] 130/78 147/82 H 132/67 Pulse Oximetry 97 99 98 Oxygen Delivery Me thod Room Air Room Air 04/27/25 10:00 04/27/25 12:07 04/27/25 14:00 Temperature 97.8 F 97.8 F 97.7 F Pulse Rate Pulse Rate [Pulse Oximeter] 83 85 77 Respiratory Rate 16 16 16 Blood Pressure Blood Pressure [Ri ght Arm] 123/73 109/68 120/73 Pulse Oximetry 99 97 99 Oxygen Delivery Me thod Room Air Room Air Room Air Labs Labs: Short CBC 04/27/25 Range/Units 07:56 WBC 15.11 H (4.50-11.00) K/uL Hgb 9.3 L (12.0-16.0) gm/dL Hct 28.8 L (33.0-51.0) % Plt Count 166 (140-440) K/uL BMP 04/27/25 07:56 BUN 9 Creatinine 0.5 Liver Function 04/26/25 04/27/25 Range/Units 18:00 07:56 Total Bilirubin 0.5 0.4 (0.1-1.5) mg/dL Direct Bilirubin 0.2 0.1 (0.0-0.5) mg/dL AST 34 34 (12-35) U/L ALT 17 15 (4-35) U/L Alkaline Phosphatase 200 H 149 (40-150) U/L Albumin 3.7 2.8 L (3.3-5.0) g/dL Assessment and Plan Assessment and plan (1) Cellulitis: Problem comment: Continue vancomycin Start Zosyn. Amniotic fluid culture and blood culture are still in progress, follow-up culture results and continue/ change antibiotics accordingly. Follow-up MRSA screen. Piperacillin/tazobactam (Zosyn) is suggested by the CDC for treatment of chorioamnionitis when broader coverage is needed. Status: Acute (2) Chorioamnionitis: Problem comment: Patient was being treated with clindamycin and gentamicin. Start Zosyn instead. Piperacillin/tazobactam (Zosyn) is suggested by the CDC for treatment of chorioamnionitis when broader coverage is needed. Amniotic fluid culture and blood culture are still in progress, follow-up culture results and continue/ change antibiotics accordingly. Status: Acute (3) GDM, class A1: Problem comment: May use SSI if Glu is uncontrolled during her hospital stay [id number] outpt f/up Status: Acute (4) Chronic hypertension affecting : Problem comment: Resume home meds Status: Acute (5) S/P repeat low transverse : Problem comment: with bilateral salpingectomy on 04/27/25 Status: Acute (6) Anemia: Problem comment: -Trend CBC Status: Acute (7) Prolonged INR: Problem comment: -Monitor Status: Acute (8) Adult BMI 50.0-59.9 kg/sq m: Status: Acute Total Time Spent Total Time Spent: Time spent: Today I spent 55 minutes seeing the patient, discussing the patient with ER staff, reviewing Expanse and EPIC notes/diagnostics, discussing the care plan with our care time that includes social work, PT/OT, pharmacy, RT, retirement and documenting my impressions and plan in the medical record.
[2025-04-28] MEDS: ENOXAPARIN 40 MG/0.4 ML INJ SUBCUT (02:38)
[2025-04-28 04:02] VITALS: BP 128/78; PULSE 84; RESP 16; TEMP 36.7; O2SAT 98
[2025-04-28] MEDS: VANCOMYCIN 2 GM/400 ML 2 GM/400 ML PIGGYBACK IVPB (04:07)
[2025-04-28] MEDS: ACETAMINOPHEN 500 MG TABLET 1000 MG PO (04:09)
[2025-04-28 05:24] LABS: Hematocrit 26.0 % (33.0-51.0); Hemoglobin* 8.2 gm/dL (12.0-16.0); Immature Granulocytes Pct Auto 0.4 %; Mean Corpuscular HGB Conc 32 gm/dL (32-36); Mean Corpuscular Hemoglobin 25 pg (26-34); Mean Corpuscular Volume 79 fL (80-100); RDW Coefficient of Variation % 14.3 % (11.5-15.5); Red Blood Count 3.31 m/uL (4.00-5.20); White Blood Count* 12.15 K/uL (4.50-11.00)
[2025-04-28 05:31] LABS: Immature Granulocytes Abs Auto 0.00 K/uL (0.00-0.30); Lymphocytes Absolute Auto 1.50 K/uL (0.90-2.90); Slide Review Reflex No
[2025-04-28 05:33] LABS: Albumin* 2.7 g/dL (3.3-5.0); Chloride* 110 mmol/L (96-114); Potassium* 4.0 mmol/L (3.6-5.1); Sodium* 134 mmol/L (135-149)
[2025-04-28 05:35] LABS: INR 1.10 (0.91-1.10); Prothrombin Time 15.1 Seconds
[2025-04-28 05:36] LABS: Alanine Aminotransferase* 15 U/L (4-35); Alkaline Phosphatase* 122 U/L (40-150); Anion Gap 2 mEq/L (7-15); Aspartate Amino Transferase* 34 U/L (12-35); Blood Urea Nitrogen* 13 mg/dL (5-24); Carbon Dioxide* 22 mmol/L (20-32); Creatinine* 0.6 mg/dL (0.5-1.5); Est. Creatinine Clearance* 101.16; Estimated Glomerular Filt Rate 126 ml/min; Total Protein* 5.6 g/dL (6.0-8.3)
[2025-04-28 05:37] LABS: Calcium* 8.1 mg/dL (8.4-10.6); Glucose* 94 mg/dL (60-115)
[2025-04-28 05:38] LABS: Bilirubin Total* < 0.1 mg/dL (0.1-1.5)
[2025-04-28] MEDS: PIPERACILLIN/TAZOBACTAM 3.375 GM in 0.9 % SODIUM CHLORIDE Mini-bag 100 ML IVPB (06:23)
[2025-04-28 08:07] VITALS: BP 131/84; PULSE 79; RESP 16; TEMP 36.8; O2SAT 96
[2025-04-28] MEDS: DOCUSATE SODIUM 100 MG CAPSULE PO (08:59)
[2025-04-28] MEDS: LABETALOL HCL 100 MG TABLET 200 MG PO (08:59)
[2025-04-28] MEDS: VENLAFAXINE ER 75 MG CAPSULE 225 MG PO (08:59)
--- NOTE | 2025-04-28 09:37 | P.DS_ITS ---
DS: Providers Provider Time Seen by Provider: 09:38 Date Seen: 04/28/25 Date of admission: 04/26/25 23:59 Primary care physician: Not a Local Provider Admitting Clinician: Violetta Gallagher MD Attending Physician on discharge: Arturo Bravo MD Date of Discharge: 04/28/25 DS: Diagnosis Discharge Diagnosis (1) Anemia: Status: Acute (2) S/P repeat low transverse : Status: Acute Problem details: with bilateral salpingectomy on 04/27/25 (3) Cellulitis: Status: Acute (4) Chronic hypertension affecting : Status: Acute Problem details: (5) Asthma: Status: Acute (6) Depression: Status: Acute (7) Chorioamnionitis: Status: Acute Exam Narrative: Exam Narrative: VITAL SIGNS: As noted above. GENERAL APPEARANCE: Alert, cooperative female in no acute distress. MOOD & AFFECT: Normal. HEART: Regular rate and rhythm without significant murmurs. LUNGS: Lungs are clear to auscultation bilaterally. No crackles, wheezes, or rhonchi. ABDOMEN: Soft, non-distended and appropriately tender. Incision is covered by silver dressing and looks dry and clean. EXTREMITIES: Bilateral tense edema of lower extremities. Marked areas of cellulitis in the right lower extremity, look to be improving with erythema noted to be receding at least by 1-2cm in some areas. No pain upon palpation. NEURO: Intact. Const: Vital Signs, click to edit/add: Vital Signs - 24 hr 04/27/25 10:00 04/27/25 12:07 04/27/25 14:00 Temperature 97.8 F 97.8 F 97.7 F Pulse Rate [Pulse Oximeter] 83 85 77 Respiratory Rate 16 16 16 Blood Pressure [Ri ght Arm] 123/73 109/68 120/73 Pulse Oximetry 99 97 99 Oxygen Delivery Me thod Room Air Room Air Room Air 04/27/25 16:00 04/27/25 18:11 04/27/25 19:48 Temperature 97.4 F L 97.6 F 97.7 F Pulse Rate [Pulse Oximeter] 85 65 78 Respiratory Rate 18 16 16 Blood Pressure [Ri ght Arm] 118/70 124/80 117/71 Pulse Oximetry 97 98 98 Oxygen Delivery Me thod Room Air Room Air Room Air 04/27/25 23:45 04/28/25 04:02 04/28/25 08:07 Temperature 98.0 F 98.2 F Pulse Rate [Pulse Oximeter] 77 84 79 Respiratory Rate 16 16 16 Blood Pressure [Ri ght Arm] 125/74 128/78 131/84 Pulse Oximetry 97 98 96 Oxygen Delivery Me thod Room Air Room Air Room Air OB - DS: Summary Hospital Course Hospital Course: The patient is a 25 year old G 4 P 1213 at 35 5/7 weeks gestation that was admitted to the Center on 04/26/25 for observation due to lower extremity cellulitis, SIRS. Concerns about chorioamnionitis also happened during her admission, reason for which delivery was recommended. She had an uncomplicated repeat delivery. She delivered a viable male infant. Baby had to be transferred to NICU, he is doing well he is still on CPAP. Post delivery she has been doing much better, vital signs improved/normalized she has remained afebrile for more than 24 hours. Pain in her lower extremity has significantly improved. Blood pressures have remained under control. No [employer] irritability symptoms. She is meeting all post operative milestones. Lab work, WBC has continued to improve this am at 12.1 from 15.1. INR normalized. MRSA swab found negative. BC, amniotic fluid culture still pending. Patient is desperate to be with her . She would like to go home today. Peripartum Data Infant delivery method: Repeat Section Procedures: Procedures Operation Date: 04/27/25 00:30 Actual Procedure Side Surgeon p Repeat with Bilateral Salpingectomy Violetta Gallagher MD Gender: Male A Infant Gender: Male Infant Discharge Plan: At NICU Status at Discharge Functional status at discharge: independent ambulation Overall status at discharge: patient is progressing back to baseline Time Spent with Patient Time attestation: Total time spent providing and/or coordinating discharge services: Time spent: Less than 30 minutes Discharge Plan Discharge Disposition: Home, Self-Care Date of Admission: 04/26/25 23:59 Attending Provider on Discharge: Cristel Bravo Primary Care Provider: Provider,Not a Local Condition: Stable Anticipated Discharge Date/Time: 04/28/25 12:00 Discharge Medications: New acetaminophen 500 mg Tablet 1,000 mg PO Q6H PRN (Reason: pain) Qty: 30 0RF docusate sodium 100 mg Capsule 100 mg PO DAILY Qty: 30 0RF ibuprofen 600 mg Tablet 600 mg PO Q6H PRN (Reason: Pain) Qty: 30 0RF labetalol 100 mg Tablet 200 mg PO BID Qty: 60 0RF cephalexin 500 mg capsule 500 mg PO TID 7 Days Qty: 21 0RF Continued ferrous sulfate 325 mg (65 mg iron) tablet 325 mg PO QMWF Qty: 30 0RF DHA 200 mg capsule 200 mg PO DAILY venlafaxine 75 mg capsule,extended release 24hr 225 mg PO DAILY bupropion HCl 150 mg tablet extended release 24 hr 150 mg PO DAILY Discontinued labetalol 100 mg tablet 100 mg PO BID Qty: 60 1RF aspirin 81 mg tablet,chewable 81 mg PO QDAY dextroamphetamine-amphetamine [Adderall XR] 20 mg capsule,extended release 24hr PO (DME) blood-glucose meter Misc See Rx Instructions .Route Qty: 1 0RF Rx Instructions: As directed (DME) Blood Glucose Test Strip See Rx Instructions .Route Qty: 100 2RF Rx Instructions: As directed to test blood glucose four times daily. (DME) lancets [Accu-Chek Softclix Lancets] Misc See Rx Instructions .Route Qty: 100 2RF Rx Instructions: As directed amoxicillin 875 mg tablet 875 mg PO BID 7 Days Qty: 14 0RF Discharge Orders: Discharge Order (Routine); Ordered 04/28/25 Ordered By: Cristel Bravo Patient Education: OB /Bottle Feeding Additional Instructions: Follow up on Monday 04/30- BP check, cellulitis follow up with MD and Thursday 05/03-silver dressing removal/incision check. Expect a call from clinic personnel to coordinate time of visits. For lower extremity infection care: - Continue oral antibiotic Cephalexin 500mg three times a day for 7 days. - Elevate the lower extremity (above the level of the heart), for at least 12 hours a day. - Avoid compression stockings. - No soaking in baths, pools, lakes etc... until infection has resolved. hypertension follow up: Measure blood pressures at home twice a day. Notify clinic if there are blood pressures persistently more than 150 systolics, 100s diastolics or if any symptoms such as headaches that do not go away with pain medication, visual changes such as dark spots in vision, pain in the upper abdomen-that moves towards the upper right side. Notify clinic if there are blood pressures persistently less than 90 seconds systolics, 50s diastolics or if there is any associated symptoms such as lightheadedness, dizziness, shortness of breath, heart palpitations. Follow-up in clinic in 3-5 days after discharge for blood pressure check, review of antihypertensive medication regimen. Follow-up in clinic in 2 weeks for incision check and follow-up. Follow-up in 6 weeks in clinic for regular visit. Activity Level: Activity as Tolerated and No Weight Bearing Activity Detail: Nothing vaginally for 6 weeks Discharge Diet: Regular Follow Up Appointments: Provider,Not a Local [Primary Care Provider, Family Practice] Forms: [employer] ([place] Info Instructions
--- NOTE | 2025-04-28 10:21 | PM.IMPN1 ---
Assessment and Plan Assessment and plan (1) Cellulitis: Problem comment: - RLE cellulitis improving on zosyn/vanco, no known antibiotic allergies - Patient is not immunocompromised and has no h/o hot tub or bath use (less likely pseudomonas) - BC NGTD - Most likely pathogens are Strep or Staph. MRSA screen is neg - US RLE neg for DVT - Recommend transitioning to oral keflex x 7 days with recheck in ob/gyne clinic as scheduled for Tuesday. If worsening again, could switch to levofloxacin. Status: Acute (2) Chorioamnionitis: Problem comment: - Was treated initially with clindamycin and gentamycin, transitioned to zosyn to complete the 24 hour course. Amniotic fluid and blood culture are NGTD. - OB/gyne managing Status: Acute (3) GDM, class A1: Problem comment: [id number] outpt f/up Status: Acute (4) Chronic hypertension affecting : Problem comment: Status: Acute (5) S/P repeat low transverse : Problem comment: with bilateral salpingectomy on 04/27/25 Status: Acute (6) Anemia: Status: Acute (7) Prolonged INR: Problem comment: -Resolved Status: Acute (8) Adult BMI 50.0-59.9 kg/sq m: Status: Acute Total Time Spent Total Time Spent: Time spent: Today I spent 55 minutes seeing the patient, discussing the patient with ER staff, reviewing Expanse and EPIC notes/diagnostics, discussing the care plan with our care time that includes social work, PT/OT, pharmacy, RT, retirement and documenting my impressions and plan in the medical record. Subjective Date Seen: 04/28/25 Interval history: Kaitlynn is feeling better today. She says the area is looking better and feels a lot better with no pain today. She notes the swelling has also improved. She is hopeful to get out soon today so she can go visit her son in the NICU in the [facility]. She tells me her leg started looking red last Tuesday. She showers regularly, and has not been any baths or hot tubs recently. She has no h/o MRSA. We discussed elevating the leg higher than her heart as often as possible throughout the day and night, taking the antibiotics as prescribed, following up on Tuesday with her OBGYN and returning sooner if she develops a fever, increasing pain or redness of the right lower extremity. Exam Narrative: Exam Narrative: General: No acute distress. Awake, alert, oriented. No pallor. No jaundice. Oropharynx: Clear. Mucous membranes moist. Extremities: Right lower extremity has 2 areas of mild erythema that have receded some from the previously outline. The erythema he has some small raised areas without blistering. There is no tenderness or calor noted today. Const: Vital Signs, click to edit/add: Vital Signs - 24 hr 04/27/25 12:07 04/27/25 14:00 04/27/25 16:00 Temperature 97.8 F 97.7 F 97.4 F L Pulse Rate [Pulse Oximeter] 85 77 85 Respiratory Rate 16 16 18 Blood Pressure [Ri ght Arm] 109/68 120/73 118/70 Pulse Oximetry 97 99 97 Oxygen Delivery Me thod Room Air Room Air Room Air 04/27/25 18:11 04/27/25 19:48 04/27/25 23:45 Temperature 97.6 F 97.7 F Pulse Rate [Pulse Oximeter] 65 78 77 Respiratory Rate 16 16 16 Blood Pressure [Ri ght Arm] 124/80 117/71 125/74 Pulse Oximetry 98 98 97 Oxygen Delivery Me thod Room Air Room Air Room Air 04/28/25 04:02 04/28/25 08:07 Temperature 98.0 F 98.2 F Pulse Rate [Pulse Oximeter] 84 79 Respiratory Rate 16 16 Blood Pressure [Ri ght Arm] 128/78 131/84 Pulse Oximetry 98 96 Oxygen Delivery Me thod Room Air Room Air Labs Labs: Laboratory Results - last 24 hr 04/28/25 05:05 WBC 12.15 H RBC 3.31 L Hgb 8.2 L Hct 26.0 L MCV 79 L MCH 25 L MCHC 32 RDW Coeff of Manohar 14.3 Plt Count 150 Neut % (Auto) 75.7 H Lymph % (Auto) 12.3 L [place] % (Auto) 11.2 H Eos % (Auto) 0.2 Baso % (Auto) 0.2 Neut # (Auto) 9.20 H Lymph # (Auto) 1.50 [place]gs # (Auto) 1.40 H Eos # (Auto) 0.00 Baso # (Auto) 0.00 Abs Immat Gran (auto) 0.00 Imm/Tot Granulo (auto) 0.4 INR 1.10 Sodium 134 L Potassium 4.0 Chloride 110 Carbon Dioxide 22 Anion Gap 2 L BUN 13 Creatinine 0.6 Estimated Creat Clear 101.16 Estimated GFR 126 Glucose 94 Calcium 8.1 L Total Bilirubin < 0.1 L AST 34 ALT 15 Alkaline Phosphatase 122 Total Protein 5.6 L Albumin 2.7 L
== END 2025-04-28 12:06 | disposition home or self-care (01) | DRG 540 ==
PROVIDERS: Admitting Provider Obstetrics & Gynecology; Visit Provider Obstetrics & Gynecology
PROC: 10D00Z1 Extraction of Products of Conception, Low, Open Approach (ICD-10-PCS; CPT 59514; principal; 2025-04-27 00:30)
DX: O41.1230 Chorioamnionitis, third trimester, not applicable or unspecified (principal); O34.211 Maternal care for low transverse scar from previous cesarean delivery; L03.115 Cellulitis of right lower limb; O36.8130 Decreased fetal movements, third trimester, not applicable or unspecified; O24.420 Gestational diabetes mellitus in childbirth, diet controlled; O10.92 Unspecified pre-existing hypertension complicating childbirth; G89.18 Other acute postprocedural pain; O99.02 Anemia complicating childbirth; D50.9 Iron deficiency anemia, unspecified; O99.12 Other diseases of the blood and blood-forming organs and certain disorders involving the immune mechanism complicating childbirth; R79.1 Abnormal coagulation profile; Z30.2 Encounter for sterilization; O99.214 Obesity complicating childbirth; E66.01 Morbid (severe) obesity due to excess calories; O99.344 Other mental disorders complicating childbirth; F32.A Depression, unspecified; F41.9 Anxiety disorder, unspecified; F98.8 Other specified behavioral and emotional disorders with onset usually occurring in childhood and adolescence; Z37.0 Single live birth; Z3A.35 35 weeks gestation of pregnancy
CPT/HCPCS: 01961; 36415; 64488; 76819; 76942; 80053; 80076; 81001; 81003; 82565; 82570; 82803; 83605; 84156; 84450; 84460; 84520; 85025; 85027; 85610; 85730; 86850; 86900; 86901; 87040; 87070; 87075; 87081; 87086; 87186; 87205; 88302; 88307; 93971; 94761; 99140; G0463; A4314; A9270; G0378; J0736; J1100; J1580; J1650; J1885; J2371; J2405; J2543; J2590; J3010; J3375; J7120